=== PATIENT | male | born 1995 | race Hispanic/Latino ===

== ENCOUNTER 2018-09-18 13:40 | Emergency (ER) | payer SELFPAY ==
--- NOTE | 2018-09-18 14:43 | EDPHYS ---
Physician Documentation [facility] Name: Jonatan Longoria Age: 23 yrs Sex: Male : 1995 Arrival Date: 09/18/2018 Time: 13:45 Bed 9 Private MD: None, None ED Physician Haile Oro HPI: 09/18 14:40 This 23 yrs old Male presents to ER via Ambulatory with complaints of Ankle kb Swelling. 14:40 The patient presents with pain, that is chronic. The complaints affect the left ankle, kb right ankle. Onset: The symptoms/episode began/occurred 1 year(s) ago. Context: resulted from The patient can fully bear weight on the affected extremity. the patient is able to ambulate. Associated signs and symptoms: The patient has no apparent associated signs or symptoms. Modifying factors: The symptoms are alleviated by nothing, the symptoms are aggravated by nothing. Severity of symptoms: At their worst the symptoms were mild, moderate, in the emergency department the symptoms are unchanged. The patient has not experienced similar symptoms in the past. The patient has not recently seen a physician. Pt reports bilateral ankle pain since HS, but has been worse over the last year. Historical: - Allergies: 14:21 No Known Allergies; sv - PMHx: 14:27 None; aa5 - PSHx: 14:21 right achilles; sv - Immunization history:: Flu vaccine is not up to date. - Social history:: Smoking status: Patient uses tobacco products, smokes one-half pack cigarettes per day. - Ebola Screening: : No symptoms or risks identified at this time. ROS: 14:40 Constitutional: Negative for fever, chills, and weight loss, Cardiovascular: Negative kb for chest pain, palpitations, and edema, Respiratory: Negative for shortness of breath, cough, wheezing, and pleuritic chest pain, Abdomen/GI: Negative for abdominal pain, nausea, vomiting, diarrhea, and constipation, Skin: Negative for injury, rash, and discoloration, Neuro: Negative for headache, weakness, numbness, tingling, and seizure. 14:40 MS/extremity: Positive for pain, of the left and right ankles. Exam: 14:40 Constitutional: This is a well developed, well nourished patient who is awake, alert, kb and in no acute distress. Head/Face: Normocephalic, atraumatic. Chest/axilla: Normal chest wall appearance and motion. Nontender with no deformity. No lesions are appreciated. Cardiovascular: Regular rate and rhythm with a normal S1 and S2. No gallops, murmurs, or rubs. Normal PMI, no JVD. No pulse deficits. Respiratory: Lungs have equal breath sounds bilaterally, clear to auscultation and percussion. No rales, rhonchi or wheezes noted. No increased work of breathing, no retractions or nasal flaring. Abdomen/GI: Soft, non-tender, with normal bowel sounds. No distension or tympany. No guarding or rebound. No evidence of tenderness throughout. Skin: Warm, dry with normal turgor. Normal color with no rashes, no lesions, and no evidence of cellulitis. MS/ Extremity: Pulses equal, no cyanosis. Neurovascular intact. Full, normal range of motion. Neuro: Awake and alert, GCS 15, oriented to person, place, time, and situation. Cranial nerves II-XII grossly intact. Motor strength 5/5 in all extremities. Sensory grossly intact. Cerebellar exam normal. Normal gait. Vital Signs: 14:22 BP 123 / 83; Pulse 66; Resp 18; Temp 97.8(TE); Pulse Ox 97% ; Weight 124.74 kg; Height sv 6 ft. 0 in. (182.88 cm); Pain 7/10; 14:22 Body Mass Index 37.30 (124.74 kg, 182.88 cm) sv MDM: 14:29 Patient medically screened. kb 14:40 Data reviewed: vital signs, nurses notes. Data interpreted: Pulse oximetry: on room air kb is 97 %. Interpretation: normal. Counseling: I had a detailed discussion with the patient and/or guardian regarding: the historical points, exam findings, and any diagnostic results supporting the discharge/admit diagnosis, the need for outpatient follow up, a orthopedic surgeon, to return to the emergency department if symptoms worsen or persist or if there are any questions or concerns that arise at home. Administered Medications: No medications were administered Disposition: 18:49 Co-signature as Attending Physician, Haile Oro MD. rn Disposition: 09/18/18 14:43 Discharged to Home. Impression: Pain in left ankle and joints of left foot - chronic, Pain in right ankle and joints of right foot - chronic. - Condition is Stable. - Discharge Instructions: Ankle Sprain, [id number]. - Work release form, Medication Reconciliation Form, Thank You Letter, Antibiotic Education, Prescription Opioid Use form. - Follow up: Emergency Department; When: As needed; Reason: Worsening of condition. Follow up: Private Physician; When: 2 - 3 days; Reason: Recheck today's complaints, Continuance of care, Re-evaluation by your physician. Signatures: Sera Fajardo, JOE-C EXERCISE INSTRUCTOR-Heather Mas, RN RN Haile Arce MD MD rn Calderon, Audri, RN RN aa5 Corrections: (The following items were deleted from the chart) 15:06 14:43 09/18/2018 14:43 Discharged to Home. Impression: Pain in left ankle and joints of aa5 left foot - chronic; Pain in right ankle and joints of right foot - chronic. Condition is Stable. Forms are Medication Reconciliation Form, Thank You Letter, Antibiotic Education, Prescription Opioid Use. Follow up: Emergency Department; When: As needed; Reason: Worsening of condition. Follow up: Private Physician; When: 2 - 3 days; Reason: Recheck today's complaints, Continuance of care, Re-evaluation by your physician. kb
--- NOTE | 2018-09-18 14:43 | ER ---
Nurse's Notes [facility] Name: Jonatan Longoria Age: 23 yrs Sex: Male : 1995 Arrival Date: 09/18/2018 Time: 13:45 Bed 9 Private MD: None, None Diagnosis: Pain in left ankle and joints of left foot-chronic;Pain in right ankle and joints of right foot-chronic Presentation: 09/18 14:19 Presenting complaint: Patient states: bilateral ankle pain started today but has been sv having problems with his ankles since tearing his achilles last year. Pt has had an MRI but is still having difficulty with twisting them. Transition of care: patient was not received from another setting of care. Onset of symptoms was September 18, 2018. Care prior to arrival: None. 14:19 Method Of Arrival: Ambulatory sv 14:19 Acuity: ALEKSANDRA 5 sv 14:27 Risk Assessment: Do you want to hurt yourself or someone else? Patient reports no aa5 desire to harm self or others. Initial Sepsis Screen: Does the patient meet any 2 criteria? No. Patient's initial sepsis screen is negative. Does the patient have a suspected source of infection? No. Patient's initial sepsis screen is negative. Triage Assessment: 14:23 General: Appears in no apparent distress. uncomfortable, obese, Behavior is calm, sv cooperative, appropriate for age. Pain: Complains of pain in left and right ankle Pain currently is 7 out of 10 on a pain scale. Neuro: Level of Consciousness is awake, alert, obeys commands, Oriented to person, place, time, situation, Moves all extremities. Gait is steady. Respiratory: Respiratory effort is even, unlabored, Respiratory pattern is regular, symmetrical. Historical: - Allergies: 14:21 No Known Allergies; sv - PMHx: 14:27 None; aa5 - PSHx: 14:21 right achilles; sv - Immunization history:: Flu vaccine is not up to date. - Social history:: Smoking status: Patient uses tobacco products, smokes one-half pack cigarettes per day. - Ebola Screening: : No symptoms or risks identified at this time. Screenin:29 Abuse screen: Denies threats or abuse. Nutritional screening: No deficits noted. aa5 Tuberculosis screening: No symptoms or risk factors identified. Fall Risk None identified. Assessment: 14:27 General: Appears comfortable, Behavior is calm, cooperative. Pain: Complains of pain in aa5 joe ankles Pain does not radiate. Aggravated by weight bearing. Neuro: Level of Consciousness is awake, alert, obeys commands, Oriented to person, place, time, situation. Cardiovascular: No deficits noted. Pulses are 3+ in right posterior tibial artery, right dorsalis pedis artery, left posterior tibial artery and left dorsalis pedis artery. Respiratory: Airway is patent Respiratory effort is even, unlabored, Respiratory pattern is regular, symmetrical. GI: No signs and/or symptoms were reported involving the gastrointestinal system. : No signs and/or symptoms were reported regarding the genitourinary system. EENT: No signs and/or symptoms were reported regarding the EENT system. Derm: Skin is pink, warm \\T\\ dry. 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 15:05 Reassessment: Patient is alert, oriented x 3, equal unlabored respirations, skin aa5 warm/dry/pink. Vital Signs: 14:22 BP 123 / 83; Pulse 66; Resp 18; Temp 97.8(TE); Pulse Ox 97% ; Weight 124.74 kg; Height sv 6 ft. 0 in. (182.88 cm); Pain 7/10; 14:22 Body Mass Index 37.30 (124.74 kg, 182.88 cm) sv ED Course: 13:45 Patient arrived in ED. mr 13:45 None, None is Private Physician. mr 14:20 Heidi Wiseman, RN is Primary Nurse. aa5 14:21 Triage completed. sv 14:22 Arm band placed on. sv 14:27 Patient has correct armband on for positive identification. Bed in low position. Call aa5 light in reach. Side rails up X 1. Adult w/ patient. 14:29 [facility] kb 14:29 Haile Oro MD is Attending Physician. kb 14:29 No provider procedures requiring assistance completed. aa5 15:05 Patient did not have IV access during this emergency room visit. aa5 Administered Medications: No medications were administered Outcome: 14:43 Discharge ordered by . kb 15:05 Discharged to home ambulatory, with significant other. aa5 15:05 Condition: stable 15:05 Discharge instructions given to patient, Instructed on discharge instructions, follow up and referral plans. Demonstrated understanding of instructions, follow-up care. 15:06 Patient left the ED. aa5 Signatures: Sera Fajardo, ARCHITECTURE INTERNSHIP-C ARCHITECTURE INTERNSHIP-Heather Mas RN RN Rosa Cho Audri, RN RN aa5 Corrections: (The following items were deleted from the chart) 14:23 14:22 124.74 kg; Height 6 ft. 0 in.; BMI: 37.3; Pain 7/10; sv sv 14:24 14:22 Pulse 66bpm; Resp 18bpm; Pulse Ox 97%; Temp 97.8F Temporal; 124.74 kg; Height 6 sv ft. 0 in.; BMI: 37.3; Pain 7/10; sv
[2018-09-18 15:12] VITALS: BP 123/83; TEMP 97.8; O2SAT 97
== END 2018-09-18 15:06 | disposition home or self-care (01) ==
LOC: ER 13:40
DX: M25.571 Pain in right ankle and joints of right foot (principal); F17.210 Nicotine dependence, cigarettes, uncomplicated
CPT/HCPCS: 99281

== ENCOUNTER 2019-11-30 12:54 | Emergency (ER) | payer SELFPAY ==
--- NOTE | 2019-11-30 13:50 | ER ---
Nurse's Notes [facility] Name: Jonatan Longoria Age: 24 yrs Sex: Male : 1995 Arrival Date: 11/30/2019 Time: 12:58 Bed 23 Private MD: Diagnosis: Pain in right thigh Presentation: 11/30 13:07 Presenting complaint: Patient states: this morning was stretching and pulled something iw in right thigh. Transition of care: patient was not received from another setting of care. Onset of symptoms was November 30, 2019. Risk Assessment: Do you want to hurt yourself or someone else? Patient reports no desire to harm self or others. Initial Sepsis Screen: Does the patient meet any 2 criteria? No. Patient's initial sepsis screen is negative. Does the patient have a suspected source of infection? No. Patient's initial sepsis screen is negative. Care prior to arrival: None. 13:07 Method Of Arrival: Ambulatory iw 13:07 Acuity: ALEKSANDRA 4 iw Historical: - Allergies: 13:07 No Known Allergies; iw - Home Meds: 13:07 None [Active]; iw - PMHx: 13:07 None; iw - PSHx: 13:07 right achilles; iw - Immunization history:: Adult Immunizations. - Social history:: Smoking status: Patient uses tobacco products, denies chronic smoking, but will smoke occasionally. - Ebola Screening: : Patient negative for fever greater than or equal to 101.5 degrees Fahrenheit, and additional compatible Ebola Virus Disease symptoms Patient denies exposure to infectious person Patient denies travel to an Ebola-affected area in the 21 days before illness onset No symptoms or risks identified at this time. Screenin:16 Abuse screen: Denies threats or abuse. Denies injuries from another. Nutritional ca1 screening: No deficits noted. Tuberculosis screening: No symptoms or risk factors identified. Fall Risk None identified. Assessment: 13:16 General: Appears in no apparent distress. comfortable, Behavior is calm, cooperative, ca1 appropriate for age. Pain: Complains of pain in right hamstring Pain currently is 4 out of 10 on a pain scale. Is intermittent, Aggravated by repositioning. Neuro: Level of Consciousness is awake, alert, obeys commands, Oriented to person, place, time, situation, Appropriate for age. Derm: Skin is intact, is healthy with good turgor, Skin is pink, warm \T\ dry. Musculoskeletal: Circulation, motion, and sensation intact. Capillary refill < 3 seconds, Range of motion: intact in all extremities. 14:05 Reassessment: Patient appears in no apparent distress at this time. Patient is alert, ca1 oriented x 3, equal unlabored respirations, skin warm/dry/pink. Vital Signs: 13:07 BP 134 / 86; Pulse 93; iw 13:07 BP 134 / 86; Pulse 93; Resp 16; Temp 98.9; Pulse Ox 97% on R/A; Weight 133.81 kg; iw Height 6 ft. 0 in. (182.88 cm); Pain 5/10; 14:05 BP 129 / 79; Pulse 86; Resp 17 S; Pulse Ox 100% on R/A; ca1 13:07 Body Mass Index 40.01 (133.81 kg, 182.88 cm) iw ED Course: 12:58 Patient arrived in ED. mr 12:58 Winter Diana FNP-C [facility]. snw 12:59 Haile Oro MD is Attending Physician. snw 13:07 Triage completed. iw 13:07 Arm band placed on. iw 13:10 Yajaira Cabrera RN is Primary Nurse. ca1 13:16 Patient has correct armband on for positive identification. Bed in low position. Call ca1 light in reach. Side rails up X 1. Pulse ox on. NIBP on. 13:16 No provider procedures requiring assistance completed. Patient did not have IV access ca1 during this emergency room visit. 14:05 Sloan wrap to R thigh by Mary Durant, senior qc technician. ca1 Administered Medications: 13:59 Drug: Motrin 400 mg Route: PO; ca1 14:00 Follow up: Response: Medication administered at discharge. ca1 Outcome: 13:50 Discharge ordered by . snw 14:24 Discharged to home ambulatory. ca1 14:24 Condition: stable 14:24 Discharge instructions given to patient, Instructed on discharge instructions, follow up and referral plans. medication usage, Demonstrated understanding of instructions, follow-up care, medications, Prescriptions given X 2. 14:26 Patient left the ED. ca1 Signatures: Winter Diana FNP-C FNP-Orestes ChadwickaRosa mr Cinthia Lin RN RN iw Acob, Yajaira, RN RN ca1
--- NOTE | 2019-11-30 13:51 | EDPHYS ---
Physician Documentation [facility] Name: Jonatan Longoria Age: 24 yrs Sex: Male : 1995 Arrival Date: 11/30/2019 Time: 12:58 Bed 23 Private MD: ED Physician Haile Oro HPI: 11/30 15:09 This 24 yrs old Male presents to ER via Ambulatory with complaints of Leg Pain.snw 15:09 The patient presents with pain, that is acute. The complaints affect the right snw hamstring. Context: The problem was sustained at home, resulted from pt states he was stretching this am before work and felt a pop with resulting pain to posterior thigh, the patient can partially bear weight, the patient is able to ambulate, Problem is a result from a previous injury: No. Onset: The symptoms/episode began/occurred suddenly, this morning. Associated signs and symptoms: Pertinent positives: swelling. Treatment prior to arrival includes: no previous treatment. Severity of symptoms: At their worst the symptoms were moderate. The patient has not recently seen a physician. Historical: - Allergies: 13:07 No Known Allergies; iw - Home Meds: 13:07 None [Active]; iw - PMHx: 13:07 None; iw - PSHx: 13:07 right achilles; iw - Immunization history:: Adult Immunizations. - Social history:: Smoking status: Patient uses tobacco products, denies chronic smoking, but will smoke occasionally. - Ebola Screening: : Patient negative for fever greater than or equal to 101.5 degrees Fahrenheit, and additional compatible Ebola Virus Disease symptoms Patient denies exposure to infectious person Patient denies travel to an Ebola-affected area in the 21 days before illness onset No symptoms or risks identified at this time. ROS: 15:11 Constitutional: Negative for fever, chills, and weight loss, Eyes: Negative for injury, snw pain, redness, and discharge, ENT: Negative for injury, pain, and discharge, Neck: Negative for injury, pain, and swelling, Cardiovascular: Negative for chest pain, palpitations, and edema, Respiratory: Negative for shortness of breath, cough, wheezing, and pleuritic chest pain, Abdomen/GI: Negative for abdominal pain, nausea, vomiting, diarrhea, and constipation, Back: Negative for injury and pain, : Negative for injury, bleeding, discharge, and swelling, Skin: Negative for injury, rash, and discoloration, Neuro: Negative for headache, weakness, numbness, tingling, and seizure. 15:11 MS/extremity: Positive for injury or acute deformity, pain, swelling, tenderness, of the right hamstring. Exam: 15:06 Constitutional: This is a well developed, well nourished patient who is awake, alert, snw and in no acute distress. Head/Face: Normocephalic, atraumatic. Eyes: Pupils equal round and reactive to light, extra-ocular motions intact. Lids and lashes normal. Conjunctiva and sclera are non-icteric and not injected. Cornea within normal limits. Periorbital areas with no swelling, redness, or edema. ENT: Nares patent. No nasal discharge, no septal abnormalities noted. Tympanic membranes are normal and external auditory canals are clear. Oropharynx with no redness, swelling, or masses, exudates, or evidence of obstruction, uvula midline. Mucous membranes moist. Neck: Trachea midline, no thyromegaly or masses palpated, and no cervical lymphadenopathy. Supple, full range of motion without nuchal rigidity, or vertebral point tenderness. No Meningismus. Chest/axilla: Normal chest wall appearance and motion. Nontender with no deformity. No lesions are appreciated. Cardiovascular: Regular rate and rhythm with a normal S1 and S2. No gallops, murmurs, or rubs. Normal PMI, no JVD. No pulse deficits. Respiratory: Lungs have equal breath sounds bilaterally, clear to auscultation and percussion. No rales, rhonchi or wheezes noted. No increased work of breathing, no retractions or nasal flaring. Abdomen/GI: Soft, non-tender, with normal bowel sounds. No distension or tympany. No guarding or rebound. No evidence of tenderness throughout. Back: No spinal tenderness. No costovertebral tenderness. Full range of motion. Skin: Warm, dry with normal turgor. Normal color with no rashes, no lesions, and no evidence of cellulitis. Neuro: Awake and alert, GCS 15, oriented to person, place, time, and situation. Cranial nerves II-XII grossly intact. Motor strength 5/5 in all extremities. Sensory grossly intact. Cerebellar exam normal. Normal gait. Psych: Awake, alert, with orientation to person, place and time. Behavior, mood, and affect are within normal limits. 15:06 Musculoskeletal/extremity: Extremities: grossly normal except: noted in the right hamstring: tenderness, ROM: limited active range of motion due to pain, in the right hamstring, Circulation is intact in all extremities. Sensation intact. Vital Signs: 13:07 BP 134 / 86; Pulse 93; iw 13:07 BP 134 / 86; Pulse 93; Resp 16; Temp 98.9; Pulse Ox 97% on R/A; Weight 133.81 kg; iw Height 6 ft. 0 in. (182.88 cm); Pain 5/10; 14:05 BP 129 / 79; Pulse 86; Resp 17 S; Pulse Ox 100% on R/A; ca1 13:07 Body Mass Index 40.01 (133.81 kg, 182.88 cm) iw MDM: 13:11 Patient medically screened. snw 15:08 Data reviewed: vital signs, nurses notes. Data interpreted: Pulse oximetry: on room air snw is 100 %. Interpretation: normal. Counseling: I had a detailed discussion with the patient and/or guardian regarding: the historical points, exam findings, and any diagnostic results supporting the discharge/admit diagnosis, the need for outpatient follow up, to return to the emergency department if symptoms worsen or persist or if there are any questions or concerns that arise at home. Special discussion: Based on the history and exam findings, there is no indication for further emergent testing or inpatient evaluation. I discussed with the patient/guardian the need to see the orthopedic surgeon for further evaluation of the symptoms. I discussed with the patient/guardian the need to see the primary care provider for further evaluation of the symptoms. 11/30 13:49 Order name: Sloan Wrap: right thigh; Complete Time: 14:20 snw Administered Medications: 13:59 Drug: Motrin 400 mg Route: PO; ca1 14:00 Follow up: Response: Medication administered at discharge. ca1 Disposition: 17:49 Co-signature as Attending Physician, Haile Oro MD. rn Disposition: 11/30/19 13:50 Discharged to Home. Impression: Pain in right thigh. - Condition is Stable. - Discharge Instructions: Hypertension, Musculoskeletal Pain, RICE for Routine Care of Injuries, Cryotherapy, [id number], Heat Therapy, Form - Blood Pressure Record Sheet. - Prescriptions for Mobic 7.5 mg Oral Tablet - take 1 tablet by ORAL route once daily take with food; 20 tablet. orphenadrine citrate 100 mg Oral Tablet Sustained Release - take 1 tablet by ORAL route 2 times per day As needed; 20 tablet. - Work release form, Medication Reconciliation Form, Thank You Letter, Antibiotic Education, Prescription Opioid Use form. - Follow up: Emergency Department; When: As needed; Reason: Worsening of condition. Follow up: Private Physician; When: 2 - 3 days; Reason: Recheck today's complaints, Continuance of care, Re-evaluation by your physician. Signatures: Winter Diana, MANGLE OPERATOR GARMENTS-C MANGLE OPERATOR GARMENTS-Csnw Cinthia Lin RN RN iw Haile Oro MD MD rn Acob, WILLA Gates RN ca1 Corrections: (The following items were deleted from the chart) 14:26 13:50 11/30/2019 13:50 Discharged to Home. Impression: Pain in right thigh. Condition ca1 is Stable. Forms are Medication Reconciliation Form, Thank You Letter, Antibiotic Education, Prescription Opioid Use. Follow up: Emergency Department; When: As needed; Reason: Worsening of condition. Follow up: Private Physician; When: 2 - 3 days; Reason: Recheck today's complaints, Continuance of care, Re-evaluation by your physician. snw
[2019-11-30] MEDS ORDERED: IBUPROFEN 400 MG TAB ONE (14:01)
[2019-11-30 15:55] VITALS: TEMP 98.9
[2019-11-30 15:56] VITALS: BP 129/79; O2SAT 100
== END 2019-11-30 14:26 | disposition home or self-care (01) ==
LOC: ER 12:54
DX: M79.651 Pain in right thigh (principal); Z72.0 Tobacco use
CPT/HCPCS: 99284

== ENCOUNTER 2020-02-08 15:26 | Emergency (ER) | payer SELFPAY ==
[2020-02-08] MEDS ORDERED: HYDROCODONE/CHLORPHEN 5 ML/OSYR ONE (16:04)
--- NOTE | 2020-02-08 16:23 | RAD REPORT ---
EXAM DESCRIPTION: RAD - Chest Pa And Lat (2 Views) - 02/08/2020 4:14 pm CLINICAL HISTORY: COUGH COMPARISON: December 2013 TECHNIQUE: Frontal and lateral views of the chest were obtained. FINDINGS: The lungs are normal volume. There is opacification in the lingula of the left upper lobe. This anterior base opacification abuts the fissure. No failure or volume overload. Heart size is n ormal and central vasculature is within normal limits. No pleural effusion or pneumothorax seen. No acute bony finding noted. No aortic abnormality. IMPRESSION: Mild or early left anterior lung base pneumonia.
--- NOTE | 2020-02-08 17:26 | ER ---
Nurse's Notes [facility] Name: Jonatan Longoria Age: 25 yrs Sex: Male : 1995 Arrival Date: 02/08/2020 Time: 15:29 Bed 20 Private MD: Diagnosis: Pneumonia, unspecified organism Presentation: 02/07 15:38 Chief complaint: Patient states: cough, congestion, headaches since Saturday. Denies ca1 fever, reports chills. Coronavirus screen: Patient reports a subjective fever or greater than 100.4F, or cough, or shortness of breath, or difficulty breathing. Patient denies travel on a cruise ship or to a country the [facility] currently lists as an affected area. Patient denies contact with known and/or suspected case of COVID-19. Ebola Screen: Patient negative for fever greater than or equal to 101.5 degrees Fahrenheit, and additional compatible Ebola Virus Disease symptoms Patient denies exposure to infectious person. Patient denies travel to an Ebola-affected area in the 21 days before illness onset. No symptoms or risks identified at this time. Initial Sepsis Screen: Does the patient meet any 2 criteria? No. Patient's initial sepsis screen is negative. Does the patient have a suspected source of infection? No. Patient's initial sepsis screen is negative. Risk Assessment: Do you want to hurt yourself or someone else? Patient reports desire/thoughts of hurting themselves or someone else. Provider notified. Onset of symptoms was February 08, 2020. 15:38 Method Of Arrival: Ambulatory ca1 15:38 Acuity: ALEKSANDRA 4 ca1 Historical: - Allergies: 15:40 No Known Allergies; ca1 - Home Meds: 15:40 None [Active]; ca1 - PMHx: 15:40 None; ca1 - PSHx: 15:40 right achilles; ca1 - Immunization history:: Adult Immunizations up to date, Flu vaccine is not up to date. - Social history:: Smoking status: Patient denies any tobacco usage or history of. Screenin:00 Abuse screen: Denies threats or abuse. Nutritional screening: No deficits noted. aa5 Tuberculosis screening: No symptoms or risk factors identified. Fall Risk None identified. Assessment: 16:00 General: Appears comfortable, Behavior is calm, cooperative. Pain: Complains of pain in aa5 head Pain currently is 0 out of 10 on a pain scale. Is intermittent. Neuro: Level of Consciousness is awake, alert, obeys commands, Oriented to person, place, time, situation. Cardiovascular: Heart tones S1 S2 present Rhythm is regular. Respiratory: Reports cough Airway is patent Respiratory effort is even, unlabored, Respiratory pattern is regular, symmetrical, Breath sounds are clear bilaterally. GI: No signs and/or symptoms were reported involving the gastrointestinal system. : No signs and/or symptoms were reported regarding the genitourinary system. EENT: Reports nasal congestion nasal discharge. Derm: Skin is pink, warm \T\ dry. Musculoskeletal: Range of motion: intact in all extremities. 17:38 Reassessment: Patient is alert, oriented x 3, equal unlabored respirations, skin aa5 warm/dry/pink. 18:10 Reassessment: Patient is alert, oriented x 3, equal unlabored respirations, skin aa5 warm/dry/pink. Vital Signs: 15:38 BP 119 / 81; Pulse 100; Resp 18 S; Temp 98.9(O); Pulse Ox 96% on R/A; Weight 131.54 kg ca1 (R); Height 6 ft. (182.88 cm) (R); Pain 0/10; 15:38 Body Mass Index 39.33 (131.54 kg, 182.88 cm) ca1 ED Course: 15:29 Patient arrived in ED. mr 15:40 Triage completed. ca1 15:40 Arm band placed on right wrist. ca1 15:42 Dejuan Spence NP is PHCP. pm1 15:42 Haile Oro MD is Attending Physician. pm1 15:51 Heidi Wiseman RN is Primary Nurse. aa5 16:00 Patient has correct armband on for positive identification. Bed in low position. Call aa5 light in reach. Side rails up X 1. 16:00 Flu and/or RSV swab sent to lab. Strep swab sent to lab. aa5 18:10 No provider procedures requiring assistance completed. Patient did not have IV access aa5 during this emergency room visit. Administered Medications: 16:00 Drug: Tussionex Pennkinetic ER 5 ml Route: PO; aa5 17:38 Follow up: Response: No adverse reaction aa5 17:38 Drug: Rocephin (cefTRIAXone) 1 grams Route: IM; Site: right gluteus; aa5 18:05 Follow up: Response: No adverse reaction aa5 Outcome: 17:25 Discharge ordered by MD. pm1 18:09 Discharged to home ambulatory. aa5 18:09 Condition: stable 18:09 Discharge instructions given to patient, Instructed on discharge instructions, follow up and referral plans. medication usage, Demonstrated understanding of instructions, follow-up care, medications, Prescriptions given X 3. 18:10 Patient left the ED. aa5 Signatures: Rosa Hare Audri, RN RN aa5 Dejuan Spence, ASSOCIATE PRINCIPAL ASSOCIATE PRINCIPAL pm1 Yajaira Cabrera RN RN ca1
--- NOTE | 2020-02-08 17:26 | EDPHYS ---
Physician Documentation [facility] Name: Jonatan Longoria Age: 25 yrs Sex: Male : 1995 Arrival Date: 02/08/2020 Time: 15:29 Bed 20 Private MD: ED Physician Haile Oro HPI: 02/07 15:54 This 25 yrs old Male presents to ER via Ambulatory with complaints of Cough, pm1 Headache. 15:54 The patient or guardian reports cough, with no sputum. Onset: The symptoms/episode pm1 began/occurred 3 day(s) ago. Severity of symptoms: in the emergency department the symptoms are actually worse. Modifying factors: The symptoms are alleviated by nothing, the symptoms are aggravated by nothing. Associated signs and symptoms: Pertinent positives: headache with coughing, Pertinent negatives: chest pain, fever, sore throat, shortness of breath. The patient has not recently seen a physician. Historical: - Allergies: 15:40 No Known Allergies; ca1 - Home Meds: 15:40 None [Active]; ca1 - PMHx: 15:40 None; ca1 - PSHx: 15:40 right achilles; ca1 - Immunization history:: Adult Immunizations up to date, Flu vaccine is not up to date. - Social history:: Smoking status: Patient denies any tobacco usage or history of. ROS: 15:54 Constitutional: Negative for fever, chills, and weight loss, Eyes: Negative for injury, pm1 pain, redness, and discharge, ENT: Negative for injury, pain, and discharge, Neck: Negative for injury, pain, and swelling, Cardiovascular: Negative for chest pain, palpitations, and edema. 15:54 Abdomen/GI: Negative for abdominal pain, nausea, vomiting, diarrhea, and constipation, Back: Negative for injury and pain, MS/Extremity: Negative for injury and deformity, Skin: Negative for injury, rash, and discoloration. 15:54 Respiratory: Positive for cough, Negative for shortness of breath, sputum production, wheezing. 15:54 Neuro: Positive for headache, Negative for dizziness, weakness. Exam: 15:54 Constitutional: This is a well developed, well nourished patient who is awake, alert, pm1 and in no acute distress. Head/Face: Normocephalic, atraumatic. Eyes: Pupils equal round and reactive to light, extra-ocular motions intact. Lids and lashes normal. Conjunctiva and sclera are non-icteric and not injected. Cornea within normal limits. Periorbital areas with no swelling, redness, or edema. ENT: Nares patent. No nasal discharge, no septal abnormalities noted. Tympanic membranes are normal and external auditory canals are clear. Oropharynx with no redness, swelling, or masses, exudates, or evidence of obstruction, uvula midline. Mucous membranes moist. Neck: Trachea midline, no thyromegaly or masses palpated, and no cervical lymphadenopathy. Supple, full range of motion without nuchal rigidity, or vertebral point tenderness. No Meningismus. Chest/axilla: Normal chest wall appearance and motion. Nontender with no deformity. No lesions are appreciated. Cardiovascular: Regular rate and rhythm with a normal S1 and S2. No gallops, murmurs, or rubs. No pulse deficits. Respiratory: Lungs have equal breath sounds bilaterally, clear to auscultation and percussion. No rales, rhonchi or wheezes noted. No increased work of breathing, no retractions or nasal flaring. Abdomen/GI: Soft, non-tender, with normal bowel sounds. No distension or tympany. No guarding or rebound. No evidence of tenderness throughout. Back: No spinal tenderness. No costovertebral tenderness. Full range of motion. Skin: Warm, dry with normal turgor. Normal color with no rashes, no lesions, and no evidence of cellulitis. MS/ Extremity: Pulses equal, no cyanosis. Neurovascular intact. Full, normal range of motion. 15:54 Neuro: Orientation: is normal, Mentation: is normal, Motor: is normal, moves all fours. Vital Signs: 15:38 BP 119 / 81; Pulse 100; Resp 18 S; Temp 98.9(O); Pulse Ox 96% on R/A; Weight 131.54 kg ca1 (R); Height 6 ft. (182.88 cm) (R); Pain 0/10; 15:38 Body Mass Index 39.33 (131.54 kg, 182.88 cm) ca1 MDM: 15:54 Patient medically screened. pm1 15:54 ED course: Patient without any sick contacts or anyone who tested positive for COVID. pm1 Patient does not currently meet criteria for testing COVID 19. 17:24 Data reviewed: vital signs. Data interpreted: Pulse oximetry: on room air is 96 %. pm1 Interpretation: normal. Counseling: I had a detailed discussion with the patient and/or guardian regarding: the historical points, exam findings, and any diagnostic results supporting the discharge/admit diagnosis, lab results, radiology results, the need for outpatient follow up, to return to the emergency department if symptoms worsen or persist or if there are any questions or concerns that arise at home. 02/07 15:44 Order name: Flu; Complete Time: 16:54 pm1 02/07 15:44 Order name: Strep pm1 02/07 15:54 Order name: Chest Pa And Lat (2 Views) XRAY pm1 02/07 16:22 Order name: Group A Streptococcus Rapid Sc EDMS 02/07 17:19 Order name: Throat Culture EDMS Administered Medications: 16:00 Drug: Tussionex Pennkinetic ER 5 ml Route: PO; aa5 17:38 Follow up: Response: No adverse reaction aa5 17:38 Drug: Rocephin (cefTRIAXone) 1 grams Route: IM; Site: right gluteus; aa5 18:05 Follow up: Response: No adverse reaction aa5 Disposition: 18:23 Co-signature as Attending Physician, Haile Oro MD. rn Disposition: 02/08/20 17:25 Discharged to Home. Impression: Pneumonia, unspecified organism. - Condition is Stable. - Discharge Instructions: Community-Acquired Pneumonia, Adult. - Prescriptions for Zithromax Z- Oli 250 mg Oral Tablet - take 1 tablet by ORAL route as directed for 5 days Day 1 - take two (2) tablets one time. Day 2, 3, 4 , 5 take one (1) tablet once daily.; 6 tablet. Albuterol Sulfate 90 mcg/actuation - inhale 1-2 puff by INHALATION route every 4-6 hours; 1 Inhaler. Guaifenesin AC 10- 100 mg/5 mL Oral Liquid - take 10 milliliter by ORAL route every 4 hours As needed; 240 milliliter. - Work release form, Medication Reconciliation Form, Thank You Letter, Antibiotic Education, Prescription Opioid Use form. - Follow up: Emergency Department; When: As needed; Reason: Worsening of condition. Follow up: Private Physician; When: 2 - 3 days; Reason: Recheck today's complaints, Continuance of care, Re-evaluation by your physician. - Problem is new. - Symptoms have improved. Signatures: Dispatcher [employer] EDMS Haile Oor MD MD rn Calderon, Audri, RN RN aa5 Dejuan Spence, CONSTRUCTION EXECUTIVE CONSTRUCTION EXECUTIVE pm1 Acob, Yajaira RN RN ca1 Corrections: (The following items were deleted from the chart) 18:10 17:25 02/08/2020 17:25 Discharged to Home. Impression: Pneumonia, unspecified organism. aa5 Condition is Stable. Forms are Medication Reconciliation Form, Thank You Letter, Antibiotic Education, Prescription Opioid Use. Follow up: Emergency Department; When: As needed; Reason: Worsening of condition. Follow up: Private Physician; When: 2 - 3 days; Reason: Recheck today's complaints, Continuance of care, Re-evaluation by your physician. Problem is new. Symptoms have improved. pm1
[2020-02-08] MEDS ORDERED: LIDOCAINE 1% MPF 2 ML AMPULE ONE (17:38)
[2020-02-08] MEDS ORDERED: CEFTRIAXONE 1000 MG/VIAL ONE (17:38)
[2020-02-08 18:21] VITALS: BP 119/81; TEMP 98.9; O2SAT 96
== END 2020-02-08 18:10 | disposition home or self-care (01) ==
LOC: ER 15:26
DX: J18.9 Pneumonia, unspecified organism (principal); R51 Headache
CPT/HCPCS: 71046; 87070; 87081; 87804; 96372; 99283; J2001

== ENCOUNTER 2020-10-17 06:30 | Emergency (ER) | payer SELFPAY ==
[2020-10-17] MEDS ORDERED: KETOROLAC 30 MG/ML INJ ONE (07:07)
--- NOTE | 2020-10-17 08:03 | RAD REPORT ---
EXAM DESCRIPTION: RAD - Ankle Left 3 View - 10/17/2020 7:48 am CLINICAL HISTORY: PAIN COMPARISON: Ankle Left 3 View dated 12/24/2016 FINDINGS: No fracture, dislocation or periosteal reaction. No joint effusion seen. No joint space na rrowing. No significant soft tissue swelling identified. Minimal edema evident in the fatty soft tiss ues posterior to the ankle IMPRESSION: No acute bone or joint finding. Minimal edema in the fatty tissues posterior to the ankle joint.
--- NOTE | 2020-10-17 08:04 | RAD REPORT ---
EXAM DESCRIPTION: RAD - Foot Left 2 View - 10/17/2020 7:48 am CLINICAL HISTORY: PAIN, nontraumatic COMPARISON: No comparisons FINDINGS: No fracture, dislocation or periosteal reaction. No acute or destructive bony process. No air or foreign body in the soft tissues. Mild edema of the soft tissues present. IMPRESSION: Mild soft tissue edema with no acute bone or joint finding of the left foot.
--- NOTE | 2020-10-17 08:09 | EDPHYS ---
Physician Documentation [facility] Name: Jonatan Longoria Age: 25 yrs Sex: Male : 1995 Arrival Date: 10/17/2020 Time: 06:33 Bed 8 Private MD: ED Physician Haile Oro HPI: 10/17 06:40 This 25 yrs old Male presents to ER via Unassigned with complaints of Ankle ma2 Pain, Ankle Swelling. 06:40 The patient presents with decreased range of motion. ma2 06:52 The complaints affect the left ankle. Onset: The symptoms/episode began/occurred ma2 gradually, 2 day(s) ago. Onset: The symptoms/episode began/occurred 2 day(s) ago. Associated signs and symptoms: Pertinent negatives: nausea, swelling, warmth, weakness. Severity of symptoms: At their worst the symptoms were mild, in the emergency department the symptoms are unchanged. The patient has not experienced similar symptoms in the past. Historical: - Allergies: 06:47 No Known Allergies; ea - PSHx: 06:47 right achilles; ea - Immunization history:: Adult Immunizations up to date. - Social history:: Smoking status: Patient denies any tobacco usage or history of. Patient/guardian denies using alcohol, street drugs, The patient lives with family. - Family history:: not pertinent. ROS: 06:52 Constitutional: Negative for fever, chills, and weight loss. ma2 06:52 All other systems are negative. Exam: 06:52 Constitutional: This is a well developed, well nourished patient who is awake, alert, ma2 and in no acute distress. Head/Face: Normocephalic, atraumatic. Eyes: Pupils equal round and reactive to light, extra-ocular motions intact. Lids and lashes normal. Conjunctiva and sclera are non-icteric and not injected. Cornea within normal limits. Periorbital areas with no swelling, redness, or edema. ENT: Nares patent. No nasal discharge, no septal abnormalities noted. Tympanic membranes are normal and external auditory canals are clear. Oropharynx with no redness, swelling, or masses, exudates, or evidence of obstruction, uvula midline. Mucous membranes moist. Neck: Trachea midline, no thyromegaly or masses palpated, and no cervical lymphadenopathy. Supple, full range of motion without nuchal rigidity, or vertebral point tenderness. No Meningismus. Chest/axilla: Normal chest wall appearance and motion. Nontender with no deformity. No lesions are appreciated. Cardiovascular: Regular rate and rhythm with a normal S1 and S2. No gallops, murmurs, or rubs. Normal PMI, no JVD. No pulse deficits. Respiratory: Lungs have equal breath sounds bilaterally, clear to auscultation and percussion. No rales, rhonchi or wheezes noted. No increased work of breathing, no retractions or nasal flaring. Abdomen/GI: Soft, non-tender, with normal bowel sounds. No distension or tympany. No guarding or rebound. No evidence of tenderness throughout. Back: No spinal tenderness. No costovertebral tenderness. Full range of motion. Skin: Warm, dry with normal turgor. Normal color with no rashes, no lesions, and no evidence of cellulitis. MS/ Extremity: left ankle exam shows mild tenderness, it is painfull to full range of motion, however full range of motion is achieved passively, no joint effusion, no warmth no skin changes such as rendness, no abrasions.. Pulses equal, no cyanosis. Neurovascular intact. Full, normal range of motion. Neuro: Awake and alert, GCS 15, oriented to person, place, time, and situation. Cranial nerves II-XII grossly intact. Motor strength 5/5 in all extremities. Sensory grossly intact. Cerebellar exam normal. Normal gait. Psych: Awake, alert, with orientation to person, place and time. Behavior, mood, and affect are within normal limits. Vital Signs: 06:50 BP 172 / 100; Pulse 77; Resp 19; Temp 98.4; Pulse Ox 97% ; Weight 99.79 kg; Height 6 ea ft. 0 in. (182.88 cm); 08:32 BP 159 / 98; Pulse 77; Resp 16; Pulse Ox 98% ; sv 06:50 Body Mass Index 29.84 (99.79 kg, 182.88 cm) ea MDM: 06:40 Patient medically screened. ma2 06:52 Differential diagnosis: fracture, sprain, arthritis. Data reviewed: vital signs, nurses ma2 notes. Counseling: I had a detailed discussion with the patient and/or guardian regarding: the historical points, exam findings, and any diagnostic results supporting the discharge/admit diagnosis, the presence of at least one elevated blood pressure reading (>120/80) during this emergency department visit, the need for outpatient follow up. Response to treatment: the patient's symptoms have markedly improved after treatment. ED course: very mild pain with no joint effusion, i gave return precaution for any new symptoms such as swelling, warmth or redness or if he develops worsening of his pain . 08:08 ED course: Xrays neg for fracture/dislocation, will dc home per Dr. Doan's plan at rn checkout.. 10/17 06:40 Order name: Ankle Left 3 View XRAY; Complete Time: 08: ma2 10/17 06:40 Order name: Foot Left 2 View XRAY; Complete Time: : ma2 Administered Medications: 06:58 Drug: TORadol 60 mg Route: IM; Site: right gluteus; rr5 08:32 Follow up: Response: No adverse reaction sv Disposition: 10/17/20 08:08 Discharged to Home. Impression: Sprain of ankle. - Condition is Stable. - Discharge Instructions: Ankle Sprain. - Prescriptions for Diclofenac Sodium 75 mg Oral Tablet Sustained Release - take 1 tablet by ORAL route 2 times per day; 30 tablet. - Work release form, Medication Reconciliation Form, Thank You Letter, Antibiotic Education, Prescription Opioid Use form. - Follow up: Private Physician; When: As needed; Reason: Recheck today's complaints, Re-evaluation by your physician. - Problem is new. - Symptoms have improved. Signatures: Dispatcher [employer] [facility] Heather Mcbride RN RN sv Nieto, Roman, MD MD rn Antunez, Elena, RN RN ea Alzahri, Mohammad, MD MD ma2 Aaron Goldstein RN RN rr5 Corrections: (The following items were deleted from the chart) 07:09 06:40 Foot Left 2 View+RAD.RAD.BRZ ordered. [facility] 08:32 08:08 10/17/2020 08:08 Discharged to Home. Impression: Sprain of ankle. Condition is sv Stable. Prescriptions for Diclofenac Sodium 75 mg Oral Tablet Sustained Release - take 1 tablet by ORAL route 2 times per day; 30 tablet. and Forms are Medication Reconciliation Form, Thank You Letter, Antibiotic Education, Prescription Opioid Use. Follow up: Private Physician; When: As needed; Reason: Recheck today's complaints, Re-evaluation by your physician. Problem is new. Symptoms have improved. rn
--- NOTE | 2020-10-17 08:09 | ER ---
Nurse's Notes [facility] Name: Jonatan Longoria Age: 25 yrs Sex: Male : 1995 Arrival Date: 10/17/2020 Time: 06:33 Bed 8 Private MD: Diagnosis: Sprain of ankle Presentation: 10/17 06:44 Chief complaint: Patient states: Pt reports left ankle pain that began on , ea worse this morning when he woke up. Coronavirus screen: Client denies travel out of the [place] in the last 14 days. At this time, the client does not indicate any symptoms associated with coronavirus-19. Ebola Screen: Patient negative for fever greater than or equal to 101.5 degrees Fahrenheit, and additional compatible Ebola Virus Disease symptoms Patient denies exposure to infectious person. Patient denies travel to an Ebola-affected area in the 21 days before illness onset. No symptoms or risks identified at this time. Initial Sepsis Screen: Does the patient meet any 2 criteria? No. Patient's initial sepsis screen is negative. Does the patient have a suspected source of infection? No. Patient's initial sepsis screen is negative. Risk Assessment: Do you want to hurt yourself or someone else? Patient reports no desire to harm self or others. Onset of symptoms was October 17, 2020. Care prior to arrival: None. Transition of care: patient was not received from another setting of care. 06:44 Method Of Arrival: Ambulatory ea 06:44 Acuity: ALEKSANDRA 4 ea Historical: - Allergies: 06:47 No Known Allergies; ea - PSHx: 06:47 right achilles; ea - Immunization history:: Adult Immunizations up to date. - Social history:: Smoking status: Patient denies any tobacco usage or history of. Patient/guardian denies using alcohol, street drugs, The patient lives with family. - Family history:: not pertinent. Screenin:17 Abuse screen: Denies threats or abuse. Denies injuries from another. Nutritional sv screening: No deficits noted. Tuberculosis screening: No symptoms or risk factors identified. Fall Risk None identified. Assessment: 07:10 General: Appears in no apparent distress. comfortable, Behavior is calm, cooperative, sv appropriate for age. Pain: Complains of pain in left ankle. Neuro: Level of Consciousness is awake, alert, obeys commands, Oriented to person, place, time, situation. Respiratory: Respiratory effort is even, unlabored, Respiratory pattern is regular, symmetrical. 08:31 Reassessment: Patient appears in no apparent distress at this time. No changes from sv previously documented assessment. Patient and/or family updated on plan of care and expected duration. Pain level reassessed. Patient is alert, oriented x 3, equal unlabored respirations, skin warm/dry/pink. Vital Signs: 06:50 BP 172 / 100; Pulse 77; Resp 19; Temp 98.4; Pulse Ox 97% ; Weight 99.79 kg; Height 6 ea ft. 0 in. (182.88 cm); 08:32 BP 159 / 98; Pulse 77; Resp 16; Pulse Ox 98% ; sv 06:50 Body Mass Index 29.84 (99.79 kg, 182.88 cm) ea ED Course: 06:33 Patient arrived in ED. bp1 06:37 Lucinda Crisostomo, WILLA is Primary Nurse. ea 06:40 Sin Doan MD is Attending Physician. ma2 06:47 Triage completed. ea 06:48 Arm band placed on. ea 07:07 Heather Mcbride, WILLA is Primary Nurse. sv 07:17 Awaiting for x-ray. sv 07:17 Patient has correct armband on for positive identification. Bed in low position. Call sv light in reach. Pulse ox on. NIBP on. 07:48 Ankle Left 3 View XRAY In Process Unspecified. EDMS 07:48 Foot Left 2 View XRAY In Process Unspecified. EDMS 08:08 Attending Physician role handed off by Sin Doan MD rn 08:08 Haile Oro MD is Attending Physician. rn 08:31 No provider procedures requiring assistance completed. Patient did not have IV access sv during this emergency room visit. Administered Medications: 06:58 Drug: TORadol 60 mg Route: IM; Site: right gluteus; rr5 08:32 Follow up: Response: No adverse reaction sv Outcome: 08:08 Discharge ordered by . rn 08:31 Discharged to home ambulatory, with family. sv 08:31 Condition: good 08:31 Discharge instructions given to patient, Instructed on discharge instructions, follow up and referral plans. medication usage, Demonstrated understanding of instructions, follow-up care, medications, Prescriptions given X 1. 08:32 Patient left the ED. sv Signatures: Dispatcher [employer] Heather Poon RN RN sv Nieto, Roman, MD MD rn Antunez, Elena, RN RN ea Alzahri, Mohammad, MD MD ma2 Aaron Goldstein RN RN rr5 Razia Retana [facility]
[2020-10-17 08:38] VITALS: TEMP 98.4
[2020-10-17 08:39] VITALS: BP 159/98; O2SAT 98
== END 2020-10-17 08:32 | disposition home or self-care (01) ==
LOC: ER 06:30
DX: S93.402A Sprain of unspecified ligament of left ankle, initial encounter (principal)
CPT/HCPCS: 96372; 99284

== ENCOUNTER 2021-12-27 08:19 | Emergency (ER) | payer SELFPAY ==
--- NOTE | 2021-12-27 09:42 | RAD REPORT ---
EXAM DESCRIPTION: RAD - Foot Right 3 View - 12/27/2021 9:17 am CLINICAL HISTORY: PAINprimarily in the right first toe COMPARISON: Foot Right 3 View dated 02/12/2013 FINDINGS: No fracture, dislocation or periosteal reaction. No acute or destructive bone or joint pro cess identifiable. Specifically, no abnormalities of the first toe seen. Soft tissue prominence is no t outside of normal range. No air or foreign body in the soft tissues. IMPRESSION: Negative right foot examination as detailed.
--- NOTE | 2021-12-27 09:47 | EDPHYS ---
Physician Documentation [facility] Name: Jonatan Longoria Age: 26 yrs Sex: Male : 1995 Arrival Date: 12/27/2021 Time: 08:22 Bed 18 Private MD: None, None ED Physician Stephan Gunn HPI: 12/27 09:43 This 26 yrs old Male presents to ER via Ambulatory with complaints of toe pain.kb 09:43 The patient presents with pain, that is acute, tenderness. The complaints affect the kb right first toe. Context: The problem was sustained at work, resulted from repetitive squatting down on toes, the patient can fully bear weight, the patient is able to ambulate. Onset: The symptoms/episode began/occurred 1 month(s) ago, and became worse yesterday. Modifying factors: The symptoms are alleviated by nothing, the symptoms are aggravated by weight bearing. Associated signs and symptoms: The patient has no apparent associated signs or symptoms. Severity of symptoms: At their worst the symptoms were moderate, in the emergency department the symptoms are unchanged. The patient has not experienced similar symptoms in the past. The patient has not recently seen a physician. Historical: - Allergies: 08:32 No Known Allergies; vg1 - Home Meds: 08:32 None [Active]; vg1 - PMHx: 08:32 None; vg1 - PSHx: 08:32 None; vg1 - Immunization history:: Client reports receiving the 2nd dose of the Covid vaccine. - Social history:: Smoking status: Reported history of juuling and/or vaping. ROS: 09:43 Constitutional: Negative for fever, chills, and weight loss. kb 09:43 MS/extremity: Positive for pain, of the right first toe. 09:43 All other systems are negative. Exam: 09:43 Constitutional: This is a well developed, well nourished patient who is awake, alert, kb and in no acute distress. Head/Face: Normocephalic, atraumatic. ENT: Moist Mucous membranes Respiratory: Respirations even and unlabored. No increased work of breathing. Talking in full sentences Skin: Warm, dry with normal turgor. Normal color. Neuro: Awake and alert, GCS 15, oriented to person, place, time, and situation. Moves all extremities. Normal gait. Psych: Awake, alert, with orientation to person, place and time. Behavior, mood, and affect are within normal limits. 09:43 Musculoskeletal/extremity: Extremities: grossly normal except: noted in the right first toe: pain, tenderness, ROM: intact in all extremities, Circulation is intact in all extremities. Sensation intact. Weight bearing: able to fully bear weight. Vital Signs: 08:30 BP 133 / 86; Pulse 67; Resp 16; Temp 98.0; Pulse Ox 99% ; Weight 124.28 kg; Height 6 vg1 ft. 0 in. (182.88 cm); Pain 9/10; 10:31 BP 137 / 65; Pulse 71; Resp 16; Temp 98; Pulse Ox 99% ; bp 08:30 Body Mass Index 37.16 (124.28 kg, 182.88 cm) vg1 MDM: 08:32 Patient medically screened. kb 09:43 Data reviewed: vital signs, nurses notes. Data interpreted: Pulse oximetry: on room air kb is 99 %. Interpretation: normal. Counseling: I had a detailed discussion with the patient and/or guardian regarding: the historical points, exam findings, and any diagnostic results supporting the discharge/admit diagnosis, radiology results, the need for outpatient follow up, a family practitioner, a orthopedic surgeon, to return to the emergency department if symptoms worsen or persist or if there are any questions or concerns that arise at home. 12/27 08:32 Order name: Foot Right 3 View XRAY; Complete Time: 09:42 kb Administered Medications: No medications were administered Disposition: 12:14 Co-signature as Attending Physician, Stephan Gunn MD I agree with the assessment and haydee plan of care. Disposition Summary: 12/27/21 09:46 Discharge Ordered Location: Home kb Condition: Stable kb Diagnosis - Pain in right toe(s) - Right Great Toe kb Followup: kb - With: Private Physician - When: 2 - 3 days - Reason: Recheck today's complaints, Continuance of care, Re-evaluation by your physician Followup: kb - With: Emergency Department - When: As needed - Reason: Worsening of condition Discharge Instructions: - Discharge Summary Sheet kb - Musculoskeletal Pain kb Forms: - Medication Reconciliation Form kb - Thank You Letter kb - Antibiotic Education kb - Prescription Opioid Use kb - Work release form bd Prescriptions: - Diclofenac Sodium 75 mg Oral tablet,delayed release (DR/EC) - take 1 tablet by ORAL route 2 times per day As needed; 30 tablet; Refills: 0, kb Product Selection Permitted Signatures: Dispatcher [employer] Sera Harper, JUANAC JOE-Stephan Moreno MD MD cha Garcia, Victoria RN RN vg1
--- NOTE | 2021-12-27 09:47 | ER ---
Nurse's Notes [facility] Name: Jonatan Longoria Age: 26 yrs Sex: Male : 1995 Arrival Date: 12/27/2021 Time: 08:22 Bed 18 Private MD: None, None Diagnosis: Pain in right toe(s)-Right Great Toe Presentation: 12/27 08:30 Chief complaint: Patient states: Right toe pain; states unsure if strained it at work; vg1 and last night states 'toe become stiff'. Coronavirus screen: Vaccine status: Patient reports receiving the 2nd dose of the covid vaccine. Client denies travel out of the [place] in the last 14 days. Ebola Screen: Patient negative for fever greater than or equal to 101.5 degrees Fahrenheit, and additional compatible Ebola Virus Disease symptoms. Initial Sepsis Screen: Does the patient meet any 2 criteria? No. Patient's initial sepsis screen is negative. Does the patient have a suspected source of infection? No. Patient's initial sepsis screen is negative. Risk Assessment: Do you want to hurt yourself or someone else? Patient reports no desire to harm self or others. Onset of symptoms was November 26, 2021. 08:30 Method Of Arrival: Ambulatory vg1 08:30 Acuity: ALEKSANDRA 4 vg1 Triage Assessment: 08:32 General: Appears uncomfortable, Behavior is calm, cooperative. Pain: Complains of pain vg1 in right first toe. Musculoskeletal: Circulation, motion, and sensation intact. Historical: - Allergies: 08:32 No Known Allergies; vg1 - Home Meds: 08:32 None [Active]; vg1 - PMHx: 08:32 None; vg1 - PSHx: 08:32 None; vg1 - Immunization history:: Client reports receiving the 2nd dose of the Covid vaccine. - Social history:: Smoking status: Reported history of juuling and/or vaping. Screenin:35 Abuse screen: Denies threats or abuse. Denies injuries from another. Nutritional bp screening: No deficits noted. Tuberculosis screening: No symptoms or risk factors identified. Fall Risk None identified. Assessment: 08:35 General: SEE TRIAGE NOTE. bp 10:31 Reassessment: PT D/C HOME AMBULATORY, DX WITH MUSCULOSKELETAL PAIN. bp Vital Signs: 08:30 BP 133 / 86; Pulse 67; Resp 16; Temp 98.0; Pulse Ox 99% ; Weight 124.28 kg; Height 6 vg1 ft. 0 in. (182.88 cm); Pain 9/10; 10:31 BP 137 / 65; Pulse 71; Resp 16; Temp 98; Pulse Ox 99% ; bp 08:30 Body Mass Index 37.16 (124.28 kg, 182.88 cm) vg1 ED Course: 08:22 Patient arrived in ED. as 08:22 None, None is Private Physician. as 08:24 [facility] Fajardo [facility]C [facility] kb 08:24 Stephan Gunn MD is Attending Physician. kb 08:32 Triage completed. vg1 08:32 Arm band placed on. vg1 08:34 Norberto Rincon, RN is Primary Nurse. bp 08:35 Patient has correct armband on for positive identification. Bed in low position. Call bp light in reach. Side rails up X2. 09:17 Foot Right 3 View XRAY In Process Unspecified. EDMS 10:31 No provider procedures requiring assistance completed. Patient did not have IV access bp during this emergency room visit. Administered Medications: No medications were administered Outcome: 09:46 Discharge ordered by . kb 10:31 Discharged to home ambulatory, with family. bp 10:31 Condition: stable 10:31 Discharge instructions given to patient, Instructed on discharge instructions, follow up and referral plans. medication usage, Demonstrated understanding of instructions, follow-up care, medications, Prescriptions given X 1. 10:33 Patient left the ED. bp Signatures: Dispatcher [employer] EDMS Sera Fajardo FNP-C FNP-Jennyfer Roberts as Norberto Rincon, RN RN bp Tesha Dillon, RN RN vg1
[2021-12-27 10:36] VITALS: O2SAT 99
[2021-12-27 10:37] VITALS: BP 137/65; TEMP 98
== END 2021-12-27 10:33 | disposition home or self-care (01) ==
LOC: ER 08:19
DX: M79.674 Pain in right toe(s) (principal)
CPT/HCPCS: 99283

== ENCOUNTER 2022-04-09 15:35 | Inpatient (IN) | payer SELFPAY ==
[2022-04-09 16:25] LABS: Absolute Lymphocytes (CBC) 1.9 K/uL (0.7-4.9); Hematocrit 43.9 % (39.6-49.0); MPV 8.2 fL (7.6-11.3); RBC Red Blood Cell Count 4.97 M/uL (4.33-5.43)
[2022-04-09 16:51] LABS: Potassium 3.7 mmol/L (3.5-5.1)
[2022-04-09 16:56] LABS: Troponin High Sensitivity 59.1 pg/mL (<58.9)
--- NOTE | 2022-04-09 17:26 | RAD REPORT ---
EXAM DESCRIPTION: RAD - Chest Single View - 04/09/2022 4:44 pm CLINICAL HISTORY: CHEST PAIN COMPARISON: Two view chest 02/08/2020 TECHNIQUE: AP portable chest image was obtained 04/09/2022 4:44 pm . FINDINGS: Lungs are clear. Heart and vasculature are normal. No measurable pleural effusion and no p neumothorax. No acute bony abnormality seen. No acute aortic findings suspected. IMPRESSION: No acute cardiopulmonary process. No significant change from comparison study.
--- NOTE | 2022-04-09 20:08 | ER ---
Nurse's Notes [facility] Name: Jonatan Longoria Age: 27 yrs Sex: Male : 1995 Arrival Date: 04/09/2022 Time: 15:36 Bed 23 [facility] MD: Diagnosis: Unstable angina;ST elevation (STEMI) myocardial infarction of unspecified site Presentation: 04/09 15:58 Chief complaint: Patient states: "I have been having this chest pain for months. it jd3 gets to the point that it hurts to breath and the pain takes my breath away if I breath a certain way.". Coronavirus screen: At this time, the client does not indicate any symptoms associated with coronavirus-19. Ebola Screen: No symptoms or risks identified at this time. Initial Sepsis Screen: Does the patient meet any 2 criteria? No. Patient's initial sepsis screen is negative. Does the patient have a suspected source of infection? No. Patient's initial sepsis screen is negative. Risk Assessment: Do you want to hurt yourself or someone else? Patient reports no desire to harm self or others. Onset of symptoms was February 07, 2022. 15:58 Method Of Arrival: Ambulatory jd3 15:58 Acuity: ALEKSANDRA 3 jd3 Historical: - Allergies: 16:00 No Known Allergies; jd3 - Home Meds: 16:00 None [Active]; jd3 - PMHx: 16:00 None; jd3 - PSHx: 16:00 None; jd3 - Immunization history:: Adult Immunizations up to date, Client reports receiving the 2nd dose of the Covid vaccine, Flu vaccine is not up to date. - Social history:: Smoking status: Patient reports the use of cigarette tobacco products, smokes one-half pack cigarettes per day. Screenin:26 Abuse screen: Denies threats or abuse. Denies injuries from another. Nutritional tw5 screening: No deficits noted. Tuberculosis screening: No symptoms or risk factors identified. Fall Risk None identified. Assessment: 17:26 Pain: Complains of pain in chest Pain currently is 4 out of 10 on a pain scale. Quality tw5 of pain is described as pressure, Pain began gradually. 17:26 General: Appears in no apparent distress. Behavior is calm, cooperative, appropriate tw5 for age. Cardiovascular: Heart tones S1 S2 present Capillary refill < 3 seconds is brisk in bilateral fingers Patient's skin is warm and dry. Pulses are 2+ in right radial artery and left radial artery. Respiratory: Airway is patent Trachea midline Respiratory effort is even, unlabored, Respiratory pattern is regular, Breath sounds are clear bilaterally. in right upper lobe, left upper lobe, left posterior upper lobe, right posterior upper lobe, left posterior lower lobe and right posterior middle lobe. 04/10 17:45 Pain: Pain does not radiate. arredondo Vital Signs: 04/09 16:00 BP 123 / 81; Pulse 64; Resp 18 S; Temp 98.2(TE); Pulse Ox 98% on R/A; Weight 129.27 kg jd3 (R); Height 6 ft. 0 in. (182.88 cm) (R); Pain 8/10; 17:26 BP 121 / 73; Pulse 60; Resp 18; Pulse Ox 98% on R/A; Pain 4/10; tw5 16:00 Body Mass Index 38.65 (129.27 kg, 182.88 cm) jd3 ED Course: 15:36 Patient arrived in ED. am2 15:46 Kun Wang DO is Attending Physician. ms3 16:00 Triage completed. jd3 16:01 Arm band placed on. EKG completed in triage. Results shown to MD. jd3 16:20 Inserted saline lock: 20 gauge in right antecubital area, using aseptic technique. jd3 Blood collected. 16:43 Basic Metabolic Panel Sent. ld1 16:43 Troponin HS Sent. ld1 16:46 XRAY Chest (1 view) In Process Unspecified. EDMS 17:26 Ale Mclean is Primary Nurse. tw5 17:26 Awaiting: awaiting repeat labs. tw5 17:26 Patient has correct armband on for positive identification. tw5 17:26 No provider procedures requiring assistance completed. Patient maintains SpO2 tw5 saturation greater than 95% on room air. 19:21 Attending Physician role handed off by Kun Wang DO ms3 19:21 Frank Claros MD is Attending Physician. ms3 19:43 Notified ED physician of a critical lab result(s). troponin 80.4. lp1 20:07 Ralph Payne is Hospitalizing Provider. kdr 04/10 07:57 Primary Nurse role handed off by Ale Mclean bd 17:44 playground monitor on. Pulse ox on. NIBP on. arredondo 17:44 IV discontinued, intact, Pressure dressing applied. arredondo Administered Medications: 04/09 20:38 Drug: Aspirin Chewable Tablet 324 mg Route: PO; ww Medication: 17:26 VIS not applicable for this client. tw5 Outcome: 20:07 Decision to Hospitalize by Provider. kdr 04/10 17:44 Discharged to home ambulatory. arredondo Condition: good Discharge instructions given to patient. 17:45 Patient left the ED. arredondo Signatures: Dispatcher [employer] EDMS Jasmin Carranza Kevin, MD MD kdr Pena, Laura, RN RN lp1 Bisi Saleh amFlynn Quinteros RN RN jd3 Kun Wang DO DO ms3 Amber Ho, RN RN ld1 Ale Mclean tw5 Ly Mclean, RN RN ww Saranya-StagerLitzy RN RN arredondo
--- NOTE | 2022-04-09 20:08 | EDPHYS ---
Physician Documentation [facility] Name: Jonatan Longoria Age: 27 yrs Sex: Male : 1995 Arrival Date: 04/09/2022 Time: 15:36 Bed 23 Private MD: ED Physician Frank Claros HPI: 04/09 16:11 This 27 yrs old Male presents to ER via Ambulatory with complaints of Chest ms3 Pain. 16:11 The patient or guardian reports chest pain that is located primarily in the substernal ms3 area. The pain does not radiate. Associated signs and symptoms: Pertinent negatives: abdominal pain, dizziness, nausea, vomiting. The chest pain is described as sharp. Duration: The patient or guardian reports multiple episodes. Duration: The patient or guardian reports a single episode, that is still ongoing, and unchanged, ongoing for 3 months. Modifying factors: The symptoms are alleviated by nothing. the symptoms are aggravated by nothing. Severity of pain: At its worst the pain was a 7 / 10 in the emergency department the pain is unchanged. Historical: - Allergies: 16:00 No Known Allergies; jd3 - Home Meds: 16:00 None [Active]; jd3 - PMHx: 16:00 None; jd3 - PSHx: 16:00 None; jd3 - Immunization history:: Adult Immunizations up to date, Client reports receiving the 2nd dose of the Covid vaccine, Flu vaccine is not up to date. - Social history:: Smoking status: Patient reports the use of cigarette tobacco products, smokes one-half pack cigarettes per day. ROS: 16:11 Constitutional: Negative for fever, and chills. ENT: Negative for injury, pain, and ms3 discharge, Neck: Negative for injury, pain, and swelling, Respiratory: Negative for shortness of breath, cough, wheezing, and pleuritic chest pain, Abdomen/GI: Negative for abdominal pain, nausea, vomiting, diarrhea, and constipation, MS/Extremity: Negative for injury and deformity, Skin: Negative for injury, rash, and discoloration. 16:11 Cardiovascular: Positive for chest pain. 16:11 All other systems are negative. Exam: 16:01 ECG was reviewed by the Attending Physician. ms3 16:11 Constitutional: This is a well developed, well nourished patient who is awake, alert, ms3 and in no acute distress. Head/Face: Normocephalic, atraumatic. Eyes: Pupils equal round and reactive to light, extra-ocular motions intact. Lids and lashes normal. Conjunctiva and sclera are non-icteric and not injected. Periorbital areas with no swelling, redness, or edema. Neck: Trachea midline, no cervical lymphadenopathy. Supple, full range of motion without nuchal rigidity, or vertebral point tenderness. No Meningismus. Chest/axilla: Normal chest wall appearance and motion. Nontender with no deformity. Cardiovascular: Regular rate and rhythm with a normal S1 and S2. No gallops, murmurs, or rubs. Normal PMI, no JVD. No pulse deficits. Respiratory: Lungs have equal breath sounds bilaterally, clear to auscultation and percussion. No rales, rhonchi or wheezes noted. No increased work of breathing, no retractions or nasal flaring. Abdomen/GI: Soft, non-tender, with normal bowel sounds. No distension or tympany. No guarding or rebound. No evidence of tenderness throughout. Skin: Warm, dry with normal turgor. Normal color with no rashes, no lesions, and no evidence of cellulitis. Psych: Awake, alert, with orientation to person, place and time. Behavior, mood, and affect are within normal limits. Vital Signs: 16:00 BP 123 / 81; Pulse 64; Resp 18 S; Temp 98.2(TE); Pulse Ox 98% on R/A; Weight 129.27 kg jd3 (R); Height 6 ft. 0 in. (182.88 cm) (R); Pain 8/10; 17:26 BP 121 / 73; Pulse 60; Resp 18; Pulse Ox 98% on R/A; Pain 4/10; tw5 16:00 Body Mass Index 38.65 (129.27 kg, 182.88 cm) jd3 MDM: 16:11 Patient medically screened. ms3 19:00 Transition of care: After a detail discussion of the patient's case, care is ms3 transferred to Frank Claros MD. 20:06 Data reviewed: vital signs, nurses notes, lab test result(s), EKG, radiologic studies. kdr Counseling: I had a detailed discussion with the patient and/or guardian regarding: the historical points, exam findings, and any diagnostic results supporting the discharge/admit diagnosis, lab results, radiology results, the need for further work-up and treatment in the hospital. 20:08 ED course: On my review of the patient's data evaluation of his presenting complaint. kdr He admits to intermittent chest discomfort that has been ongoing for weeks or months. Has been getting worse over the past few days. He has not had a previous evaluated. He is a smoker of about 4 to 5 cigarettes/day and there is a cardiac history and his family but he does not have specifics. 04/09 16:14 Order name: Basic Metabolic Panel; Complete Time: 17:53 ms3 04/09 16:14 Order name: CBC with Diff; Complete Time: 17:53 ms3 04/09 16:14 Order name: Troponin HS; Complete Time: 17:53 ms3 04/09 17:20 Order name: Troponin High Sensitivity: at 1920; Complete Time: 20:00 jd3 04/09 20:13 Order name: COVID-19 SARS RT PCR (Document "Date of Onset" if Symptomatic) [facility] 04/10 03:48 Order name: Troponin High Sensitivity [facility] 04/09 16:14 Order name: XRAY Chest (1 view); Complete Time: 17:53 ms3 04/09 16:14 Order name: EKG; Complete Time: 16:15 ms3 04/09 16:14 Order name: Cardiac monitoring; Complete Time: 16:19 ms3 04/10 03:48 Order name: Lipid Profile [facility] 04/10 03:58 Order name: LDL, Direct [facility]OH 04/10 09:43 Order name: Troponin High Sensitivity [facility] 04/10 13:38 Order name: NM [facility] 04/09 16:14 Order name: EKG - Nurse/Tech; Complete Time: 16:19 ms3 04/09 16:14 Order name: IV Saline Lock; Complete Time: 16:19 ms3 04/09 16:14 Order name: Labs collected and sent; Complete Time: 16:19 ms3 04/09 16:14 Order name: O2 Per Protocol; Complete Time: 16:20 ms3 04/09 16:14 Order name: O2 Sat Monitoring; Complete Time: 16:20 ms3 04/09 18:30 Order name: EKG - Nurse/Tech: repeat at 1920; Complete Time: 20:18 tw5 EC:01 Rate is 59 beats/min. Rhythm is regular. QRS [place] is Normal. Clinical impression: Sinus ms3 bradycardia. Interpreted by me. Administered Medications: 20:38 Drug: Aspirin Chewable Tablet 324 mg Route: PO; ww Disposition Summary: 04/09/22 20:07 Hospitalization Ordered Hospitalization Status: Observation kdr Provider: Ralph Payne Condition: Stable kdr Problem: new kdr Symptoms: are unchanged kdr Bed/Room Type: Standard kdr Location: [facility] ER HOLD(04/09/22 20:31) Room Assignment: ERHOLD-(04/09/22 20:31) mw Diagnosis - Unstable angina kdr - ST elevation (STEMI) myocardial infarction of unspecified site kdr Discharge Instructions: - Discharge Summary Sheet ms3 - Nonspecific Chest Pain, Adult ms3 Forms: - Medication Reconciliation Form kdr - SBAR form kdr - Work release form arredondo Signatures: Dispatcher [employer] EDYue Mckeon RN RN Frank Claros MD MD kdr Davies, Jonathon, RN RN jd3 Sims, Marcus, DO ms3 Diallo Mcleanfany tw5 Ly Mclean RN RN ww Corrections: (The following items were deleted from the chart) 20:31 20:07 Telemetry/MedSurg (observation) [facility] 20:31 20:07 kdr
[2022-04-09] MEDS ORDERED: ASPIRIN 81 MG CHEWABLE TABLET ONE (20:34)
--- NOTE | 2022-04-09 20:41 | P.HP ---
Certification for Inpatient Patient admitted to: Observation With expected LOS: <2 Midnights Patient will require the following post-hospital care: None Practitioner: I am a practitioner with admitting privileges, knowledge of patient current condition, hospital course, and medical plan of care. Services: Services provided to patient in accordance with Admission requirements found in Title 42 Section 412.3 of the Code of Federal Regulations Patient History Date of Service: 04/09/22 Reason for admission: Chest pain, elevated troponin History of Present Illness: 27-year-old male patient with no sniffing past medical history presents emergency department for chest pain. Patient ports that over the course of the last couple months he has had intermittent sharp substernal chest pain nonradiating with associated shortness of breath also reports suspected periods of apnea at night he was evaluated in the emergency department his initial high-sensitivity troponin was mildly elevated 59.1 this was repeated it went up slightly to 80.4 his EKG was without ST elevation ED provider wishes to admit under observation for ACS rule out. Allergies No Known Allergies Allergy (Unverified 01/08/13 09:50) - Past Medical/Surgical History -: None -: None Psychosocial/ Personal History: Patient lives at home, alone - Family History Father -: Heart disease, Diabetes Mother -: Heart disease, Diabetes - Social History Smoking Status: Current every day smoker Alcohol use: Yes CD- Drugs: No Caffeine use: Yes Place of Residence: Home Review of Systems 10-point ROS is otherwise unremarkable Cardiovascular: Chest Pain Physical Examination - Physical Exam General: Alert, In no apparent distress, Obese HEENT: Atraumatic, PERRLA, Mucous membr. moist/pink, EOMI, Sclerae nonicteric Neck: Supple, 2+ carotid pulse no bruit, No LAD, Without JVD or thyroid abnormality Respiratory: Clear to auscultation bilaterally, Normal air movement Cardiovascular: Regular rate/rhythm, Normal S1 S2 Capillary refill: <2 Seconds Gastrointestinal: Normal bowel sounds, No tenderness Musculoskeletal: No tenderness Integumentary: No rashes Neurological: Normal gait, Normal speech, Normal strength at 5/5 x4 extr, Normal tone, Normal affect Lymphatics: No axilla or inguinal lymphadenopathy - Studies Laboratory Data (last 24 hrs) 04/09/22 16:17: WBC 4.7, Hgb 14.9, Hct 43.9, Plt Count 207 04/09/22 16:17: Sodium 140, Potassium 3.7, BUN 10, Creatinine 0.77, Glucose 94 Assessment and Plan - Plan Assessment: Chest pain rule out ACS Plan: Chest pain rule out ACS: Atypical chest pain described as sharp on and off for the course of last 1 month, troponin mildly elevated trending up will need to continue trending troponin, consult cardiology. Echocardiogram to be ordered continue with aspirin, statin. Patient does report some symptoms suggestive of possible obstructive sleep apnea will need to follow-up with PCP for further evaluation of this. DVT PPX: Lovenox Code status:Full Discharge Plan: Home Plan to discharge in: 24 Hours - Advance Directives Does patient have a Living Will: No Does patient have a Durable POA for Healthcare: No - Code Status/Comfort Care Code Status Assessed: Yes (Full code) Critical Care: No Time Spent Managing Pts Care (In Minutes): 55
[2022-04-09 22:45] VITALS: BMI 38.6
[2022-04-09] MEDS ORDERED: MORPHINE 2 MG/ML SYR IV PRN (22:54)
[2022-04-09] MEDS ORDERED: ONDANSETRON 4 MG/2 ML VIAL IV PRN (22:54)
[2022-04-09] MEDS ORDERED: ATORVASTATIN 40 MG TAB PO SCH (22:54)
[2022-04-10] MEDS ORDERED: ATORVASTATIN 40 MG TAB ONE (01:36)
[2022-04-10 03:44] LABS: HDL Cholesterol 29 mg/dL (40-60)
[2022-04-10 03:48] LABS: Troponin High Sensitivity 126.7 pg/mL (<58.9)
[2022-04-10 03:58] LABS: LDL, Direct 82 mg/dL (100-129)
[2022-04-10 08:24] VITALS: BP 119/76; TEMP 98.1
[2022-04-10] MEDS ORDERED: ENOXAPARIN 40 MG/0.4 ML SQ ONE (08:36)
[2022-04-10] MEDS ORDERED: ASPIRIN 81 MG CHEWABLE TABLET ONE (08:36)
[2022-04-10] MEDS ORDERED: ASPIRIN EC 81 MG TAB PO SCH (09:00)
[2022-04-10] MEDS ORDERED: ENOXAPARIN 40 MG/0.4 ML SQ SCH (09:00)
--- NOTE | 2022-04-10 09:09 | EKG ---
Test Date: 2022-04-09 Test Time: 18:59:03 Consumer Insight Manager: MB MEASUREMENT RESULTS: Intervals: Rate: 55 AR: 160 QRSD: 92 QT: 474 QTc: 453 [place]: P: 47 AR: 160 QRS: 74 T: 31 INTERPRETIVE STATEMENTS: Sinus bradycardia Otherwise normal ECG Compared to ECG 04/09/2022 16:01:56 Sinus arrhythmia no longer present Electronically Signed On 04-10-22 09:08:03 CDT by Gage Gastelum
--- NOTE | 2022-04-10 09:10 | EKG ---
Test Date: 2022-04-09 Test Time: 16:01:56 Supervisor Lump Room: JADE MEASUREMENT RESULTS: Intervals: Rate: 59 [place]: 152 QRSD: 86 QT: 430 QTc: 425 [place]: P: 25 [place]: 152 QRS: 73 T: 18 INTERPRETIVE STATEMENTS: Sinus bradycardia with sinus arrhythmia Otherwise normal ECG Compared to ECG 09/26/2014 21:34:33 Sinus rhythm no longer present Electronically Signed On 04-10-22 09:08:10 CDT by aGge Gastelum
[2022-04-10] MEDS ORDERED: REGADENOSON 0.4 MG/5 ML SYR IV ONE (09:55)
--- NOTE | 2022-04-10 13:37 | RAD REPORT ---
EXAM DESCRIPTION: NM - Rest Stress Cardiac Imaging - 04/10/2022 1:19 pm CLINICAL HISTORY: Chest pain COMPARISON: None. TECHNIQUE: The patient was administered 10.2 mCi of Tc 99m Sestamibi prior to resting SPECT imaging of the heart. The patient was then administered 31.4 mCi of Tc 99m Sestamibi following exercise or ph armacologic stress. Multiplanar SPECT images were reviewed. FINDINGS: The end diastolic volume is 169 ml, the end systolic volume is 86 ml, and the ejection fra ction is 49 %. No stress-induced ischemic changes identified. Diminished activity is seen in the anterior wall near the apex and along the base and midportion of the inferior wall. These findings do not change between rest and stress imaging. IMPRESSION: No stress-induced ischemia. Small areas of fixed defects noted anterior wall near the apex and along the inferior wall. Attenuati on artifacts and scarring are both possible. End-diastolic volume is enlarged at 169 mL with 49% EF.
[2022-04-10 17:56] VITALS: O2SAT 98
--- NOTE | 2022-04-10 19:32 | CON ---
Date of Consultation: 04/10/2022 Reason For Consultation: Elevated troponin. History Of Present Illness: Mr. Longoria is 27, has a family history of heart disease, family history o f lupus and coronary artery disease and diabetes, comes in with an elevated triglycerides over 100, t roponin 126, has had pelvic heat stroke with body ache throughout. No specific location of _ pain. He was very diaphoretic, was working hard. His EKG is unremarkable. Chest x-ray is unremark able, but his troponin is mildly elevated. Past Medical History: As stated above. Allergies: NONE. Medications: At home are none. Review of Systems: Negative. Social History: Negative. Family History: Positive for CAD, lupus, and diabetes. Physical Examination: GENERAL: Obese, otherwise VITAL SIGNS: Stable, afebrile. HEENT: Negative. NECK: Supple without any lymphadenopathy, JVD, thyromegaly or bruit. CHEST: Clear to auscultation and percussion. CARDIAC: Exam revealed a regular rhythm and rate. No murmurs, gallops, or rubs. Abdomen: Benign, EXTREMITIES: Revealed no clubbing, cyanosis, or edema. Diagnostic Data: As stated earlier. Impression And Plan: Mildly elevated troponin, possibly secondary to rhabdomyolysis type and heat st roke. He had triglyceridemia, family history. He has obesity. I think it is reasonable to do a car diac workup on him with an echocardiogram and a stress test before we will make final decisions. Whe n he goes home, he should be on Tricor and a baby aspirin, and have primary care followup. I will be happy to see him in my office as well. JULIEN/ALBINA Voice ID: [id number] Report ID: [id number]
--- NOTE | 2022-04-10 23:00 | P.DS ---
Admission Date: 04/09/22 Discharge Date: 04/10/22 Disposition: ROUTINE DISCHARGE Reason for Admission: Chest pain, elevated troponin Consultations: Cardiology - Dr. Gastelum Procedures: Problem List Chest Pain, elevated troponin Hypertriglyceridemia Brief History of Present Illness: 27-year-old male patient with no sniffing past medical history presents emergency department for chest pain. Patient ports that over the course of the last couple months he has had intermittent sharp substernal chest pain nonradiating with associated shortness of breath also reports suspected periods of apnea at night. In the ED, tropoin was mildly elevated at 59 and increased to 80. EKG without ST changes. Also reported ~3 episodes of near heat strokes in the last few months from work. Last episode ~2 weeks. Hospital Course: Patient's troponins slightly increased and then improved. Cardiology was consulted and patient underwent stress testing which was negative. Workup did reveal hypertriglyceridemia in 500s. Discussed weight loss / diet. Recommended medication treatment and diet/weight loss. Follow up with cardiology in 3-4 weeks. Recommend establishing with a primary care doctor. Further discuss weight loss, lowering further risks for heart problems Vital Signs/Physical Exam: Temp Pulse Resp BP Pulse Ox 98.1 F 53 17 119/76 98 04/10/22 08:00 04/10/22 08:00 04/10/22 08:00 04/10/22 08:00 04/10/22 08:00 General: Alert, In no apparent distress, Oriented x3 HEENT: Sclerae nonicteric Respiratory: Clear to auscultation bilaterally Cardiovascular: No edema, Regular rate/rhythm Gastrointestinal: Soft and benign, Non-distended, No tenderness Musculoskeletal: No erythema, No tenderness Integumentary: No significant lesion Neurological: Normal speech, Normal affect Laboratory Data at Discharge: WBC 4.7 K/uL (4.3-10.9) 04/09/22 16:17 Hgb 14.9 g/dL (13.6-17.9) 04/09/22 16:17 Hct 43.9 % (39.6-49.0) 04/09/22 16:17 Plt Count 207 K/uL (152-406) 04/09/22 16:17 Sodium 140 mmol/L (136-145) 04/09/22 16:17 Potassium 3.7 mmol/L (3.5-5.1) 04/09/22 16:17 BUN 10 mg/dL (7-18) 04/09/22 16:17 Creatinine 0.77 mg/dL (0.55-1.3) 04/09/22 16:17 Glucose 94 mg/dL (74-106) 04/09/22 16:17 Triglycerides 535 mg/dL (<150) H 04/10/22 02:58 Cholesterol 159 mg/dL (<200) 04/10/22 02:58 LDL Cholesterol Direct 82 mg/dL (100-129) L 04/10/22 02:58 HDL Cholesterol 29 mg/dL (40-60) L 04/10/22 02:58 Cholesterol/HDL Ratio 5.48 04/10/22 02:58 Home Medications: Simvastatin 20 mg PO DAILY 30 Days #30 tablet 04/10/22 New Medications: Simvastatin 20 mg PO DAILY 30 Days #30 tablet Diet: AHA Followup: NONE,NONE [Primary Care Provider] - Time spent managing pt's care (in minutes): 40
--- NOTE | 2022-04-11 12:46 | ECHO ---
HEIGHT: 6 ft 0 in WEIGHT: 284 lb 15.865 oz DATE OF STUDY: 04/10/[address]: Gage Gastelum MD 2-DIMENSIONAL: YES M.MODE: YES DOPPLER: YES COLOR FLOW: YES TDS: PORTABLE: YES DEFINITY: BUBBLE STUDY: DIAGNOSIS: CHEST PAIN CARDIAC HISTORY: CATHERIZATION: NO SURGERY: NO PROSTHETIC VALVE: NO PACEMAKER: NO MEASUREMENTS (cm) DIASTOLIC (NORMALS) SYSTOLIC (NORMALS) IVSd 1.1 (0.6-1.2) LA Diam 3.0 (1.9-4.0) LVEF 50% LVIDd 4.9 (3.5-5.7) LVIDs 3.6 (2.0-3.5) %FS 25% LVPWd 1.2 (0.6-1.2) Ao Diam 3.1 (2.0-3.7) 2 DIMENSIONAL ASSESSMENT: RIGHT ATRIUM: NORMAL LEFT ATRIUM: NORMAL RIGHT VENTRICLE: NORMAL LEFT VENTRICLE: NORMAL TRICUSPID VALVE: NORMAL MITRAL VALVE: NORMAL PULMONIC VALVE: NORMAL AORTIC VALVE: NORMAL PERICARDIAL EFFUSION: NONE AORTIC ROOT: NORMAL LEFT VENTRICULAR WALL MOTION: NORMAL DOPPLER/COLOR FLOW: MILD TRICUSPID REGURGITATION. COMMENTS: MILD TRICUSPID REGURGITATION. NORMAL LEFT VENTRICULAR SIZE AND FUNCTION. NO WALL MOTION ABNORMALITY. NO EFFUSION. TECHNOLOGIST: CARTER ESPINAL
--- NOTE | 2022-04-11 13:14 | TREADPHA ---
DX: CHEST PAIN Date of Study: 04/10/2022 Ht: 6' 0 " Wt: 284 lb 15.865 oz Consulting Physician: ARYA MEDICATIONS: ASPIRIN, LIPITOR, LOVENOX, ZOFRAN HISTORY: NO HISTORY PHYSICIAL EXAMINATION: RESTING B.P.: 116/67 RESTING H.R.: 61 RESTING EKG: NORMAL PROTOCOL: PHARMACOLOGIC EXERCISE TIME: 3:30 B.P. AT [place]AK STRESS: 118/63 IMPRESSION: LEXISCAN STRESS TEST PERFORMED. CARDIOLITE INJECTED PER PROTOCOL. SEE NUCLEAR MEDICINE REPORT. NO SUPRAVENTRICULAR TACHYCARDIA. NO VENTRICULAR TACHYCARDIA. NO ARRHYTHMIAS NOTED. RESPIRATORY EVEN NONLABORED. PATIENT TOLERATED WELL.
== END 2022-04-10 18:07 | disposition home or self-care (01) | DRG 642 ==
LOC: ER 15:35 → ERHOLD 21:10 → OBSVTOIN 04-10 09:06
PROVIDERS: ADMIT Hospitalist; ATTEND Hospitalist
DX: E78.1 Pure hyperglyceridemia (principal); R07.9 Chest pain, unspecified; E66.9 Obesity, unspecified; Z68.38 Body mass index [BMI] 38.0-38.9, adult; Z71.3 Dietary counseling and surveillance; F17.210 Nicotine dependence, cigarettes, uncomplicated; R77.8 Other specified abnormalities of plasma proteins; Z83.3 Family history of diabetes mellitus; Z82.49 Family history of ischemic heart disease and other diseases of the circulatory system; Z20.822 Contact with and (suspected) exposure to COVID-19
CPT/HCPCS: 36415; 71045; 78452; 80048; 80061; 84484; 85025; 93005; 93017; 93306; 99285; A9500; G0378; J1650; J2785; U0003

== ENCOUNTER 2022-06-26 13:51 | Emergency (ER) | payer SELFPAY ==
--- NOTE | 2022-06-26 16:46 | ER ---
Nurse's Notes [facility] Name: Jonatan Longoria Age: 27 yrs Sex: Male : 1995 Arrival Date: 06/26/2022 Time: 13:55 Bed 10 Private MD: Diagnosis: Encounter for screening for other viral diseases Presentation: 06/26 14:18 Chief complaint: Patient states: woke up today with no taste or smell, was sent by his iw boss, no cough, no body aches, has had three home COVID tests are negative. Coronavirus screen: Client presents with at least one sign or symptom that may indicate coronavirus-19. Ebola Screen: Patient negative for fever greater than or equal to 101.5 degrees Fahrenheit, and additional compatible Ebola Virus Disease symptoms Patient denies exposure to infectious person. Patient denies travel to an Ebola-affected area in the 21 days before illness onset. No symptoms or risks identified at this time. Initial Sepsis Screen: Does the patient meet any 2 criteria? No. Patient's initial sepsis screen is negative. Does the patient have a suspected source of infection? No. Patient's initial sepsis screen is negative. Risk Assessment: Do you want to hurt yourself or someone else? Patient reports no desire to harm self or others. Onset of symptoms was June 26, 2022. 14:18 Method Of Arrival: Ambulatory 14:18 Acuity: ALEKSANDRA 4 Triage Assessment: 16:58 General: Appears in no apparent distress. obese, Behavior is calm, cooperative, jh5 appropriate for age. Pain: Denies pain. Historical: - Allergies: 14:19 No Known Allergies; iw - Home Meds: 14:19 None [Active]; iw - PMHx: 14:19 Sleep apnea; iw - Immunization history:: Adult Immunizations up to date. - Social history:: Smoking status: Patient denies any tobacco usage or history of. Screenin:57 Abuse screen: Denies threats or abuse. Denies injuries from another. Nutritional jh5 screening: No deficits noted. Tuberculosis screening: No symptoms or risk factors identified. Fall Risk None identified. Vital Signs: 14:18 BP 121 / 87; Pulse 78; Resp 16; Temp 98.6; Pulse Ox 97% on R/A; Weight 133.81 kg; iw Height 6 ft. 0 in. (182.88 cm); 14:18 Body Mass Index 40.01 (133.81 kg, 182.88 cm) iw ED Course: 13:55 Patient arrived in ED. mr 14:03 Stephan Pham PA is PHCP. cp 14:03 Stephan Gunn MD is Attending Physician. cp 14:19 Triage completed. iw 14:21 Arm band placed on. iw 14:33 Tatyana Hammer, RN is Primary Nurse. jh5 16:57 Patient has correct armband on for positive identification. jh5 16:57 No provider procedures requiring assistance completed. Patient did not have IV access jh5 during this emergency room visit. Administered Medications: No medications were administered Medication: 16:59 VIS not applicable for this client. 5 Outcome: 16:45 Discharge ordered by . cp 16:58 Discharged to home ambulatory, with significant other. jh5 16:58 Condition: good 16:58 Discharge instructions given to patient, significant other, Instructed on discharge instructions, follow up and referral plans. safety practices, Demonstrated understanding of instructions, follow-up care. 17:00 Patient left the ED. 5 Signatures: Rosa Hare Cinthia Lin, RN RN Stephan Pham PA PA cp Tatyana Hammer, RN RN 5 Corrections: (The following items were deleted from the chart) 14:20 14:19 PMHx: None; iw iw 14:21 14:18 Pulse 78bpm; Resp 16bpm; Pulse Ox 97% RA; Temp 98.6F; 133.81 kg; Height 6 ft. 0 iw in.; BMI: 40.0; iw
--- NOTE | 2022-06-26 16:46 | EDPHYS ---
Physician Documentation [facility] Name: Jonatan Longoria Age: 27 yrs Sex: Male : 1995 Arrival Date: 06/26/2022 Time: 13:55 Bed 10 Private MD: ED Physician Stephan Gunn HPI: 06/26 15:00 This 27 yrs old Male presents to ER via Ambulatory with complaints of Rule out cp Covid. 15:00 Type of Exposure: COVID-19. cp 15:00 Context: The problem was sustained at work. Symptoms: loss of taste and smell that cp started this morning. Historical: - Allergies: 14:19 No Known Allergies; iw - Home Meds: 14:19 None [Active]; iw - PMHx: 14:19 Sleep apnea; iw - Immunization history:: Adult Immunizations up to date. - Social history:: Smoking status: Patient denies any tobacco usage or history of. ROS: 15:05 Constitutional: Negative for body aches, chills, fever, poor PO intake. cp 15:05 Eyes: Negative for injury, pain, redness, and discharge. cp 15:05 ENT: Negative for drainage from ear(s), ear pain, sore throat, difficulty swallowing, difficulty handling secretions. 15:05 Cardiovascular: Negative for chest pain, edema, palpitations. 15:05 Respiratory: Negative for cough, shortness of breath, wheezing. 15:05 Abdomen/GI: Negative for abdominal pain, nausea, vomiting, and diarrhea. 15:05 Neuro: Negative for altered mental status, dizziness, headache, weakness. 15:05 All other systems are negative. Exam: 15:10 Constitutional: The patient appears in no acute distress, alert, awake, non-toxic, well cp developed, well nourished, obese. 15:10 Head/Face: Normocephalic, atraumatic. cp 15:10 Eyes: Periorbital structures: Conjunctiva: normal, no exudate, no injection, Sclera: no appreciated abnormality, Lids and lashes: appear normal, bilaterally. 15:10 ENT: External ear(s): are unremarkable, Nose: is normal, Mouth: Lips: moist, Oral mucosa: pink and intact, moist, Posterior pharynx: Airway: no evidence of obstruction, patent, Tonsils: no enlargement, no exudate, erythema, that is mild, exudate, is not appreciated. 15:10 Neck: ROM/movement: is normal, is supple, without pain, no range of motions limitations, no meningismus, Lymph nodes: no appreciated lymphadenopathy. 15:10 Chest/axilla: Inspection: normal. 15:10 Cardiovascular: Rate: normal, Rhythm: regular. 15:10 Respiratory: the patient does not display signs of respiratory distress, Respirations: normal, no use of accessory muscles, no retractions, labored breathing, is not present, Breath sounds: are clear throughout, no decreased breath sounds, no stridor, no wheezing. 15:10 Abdomen/GI: Inspection: abdomen appears normal, Palpation: abdomen is soft and non-tender, in all quadrants. 15:10 Back: pain, is absent, ROM is normal. 15:10 Skin: cellulitis, is not appreciated, no rash present. 15:10 Neuro: Orientation: to person, place \\T\\ time. Mentation: is normal. Vital Signs: 14:18 BP 121 / 87; Pulse 78; Resp 16; Temp 98.6; Pulse Ox 97% on R/A; Weight 133.81 kg; iw Height 6 ft. 0 in. (182.88 cm); 14:18 Body Mass Index 40.01 (133.81 kg, 182.88 cm) iw MDM: 14:21 Patient medically screened. haydee 16:45 Data reviewed: vital signs, nurses notes, lab test result(s). cp 16:45 Counseling: I had a detailed discussion with the patient and/or guardian regarding: the cp historical points, exam findings, and any diagnostic results supporting the discharge/admit diagnosis, lab results, to return to the emergency department if symptoms worsen or persist or if there are any questions or concerns that arise at home. Response to treatment: the patient's symptoms have mildly improved after treatment, and as a result, I will discharge patient. 06/26 14:30 Order name: SARS-COV-2 RT PCR (Document "Date of Onset" if Symptomatic); Complete Time: kc6 16:41 06/26 14:30 Order name: Flu; Complete Time: 16:41 kc6 Administered Medications: No medications were administered Disposition Summary: 06/26/22 16:45 Discharge Ordered Location: Home cp Problem: new cp Symptoms: are unchanged cp Condition: Stable cp Diagnosis - Encounter for screening for other viral diseases cp Followup: cp - With: Private Physician - When: 2 - 3 days - Reason: Worsening of condition Discharge Instructions: - Discharge Summary Sheet cp - COVID-19: What Your Test Results Mean - [facility] cp - COVID-19 Frequently Asked Questions cp Forms: - Medication Reconciliation Form cp - Thank You Letter cp - Antibiotic Education cp - Prescription Opioid Use cp - Work release form jh5 Signatures: Dispatcher [employer] EDStephan Ellis MD MD cha Williams, Irene, RN RN iw Stephan Pham PA PA Tatyana Menjivar RN RN jh5 Corrections: (The following items were deleted from the chart) 14:20 14:19 PMHx: None; saumya
[2022-06-26 17:25] VITALS: BP 121/87; TEMP 98.6; O2SAT 97
== END 2022-06-26 17:00 | disposition home or self-care (01) ==
LOC: ER 13:51
DX: R43.8 Other disturbances of smell and taste (principal); Z20.822 Contact with and (suspected) exposure to COVID-19
CPT/HCPCS: 87804; 99281; U0003

== ENCOUNTER 2023-01-26 04:39 | Emergency (ER) | payer SELFPAY ==
[2023-01-26] MEDS ORDERED: MULTIVITAMINS 10 ML VIAL (INJ) IV ONE (05:11)
[2023-01-26] MEDS ORDERED: THIAMINE 200 MG/2 ML INJ ONE (05:11)
[2023-01-26] MEDS ORDERED: ONDANSETRON 4 MG/2 ML VIAL ONE (05:11)
[2023-01-26 05:12] LABS: Absolute Lymphocytes (CBC) 1.7 K/uL (0.7-4.9); Hematocrit 41.4 % (39.6-49.0); Lymphocytes % 24.9 % (15.3-44.8); MCV 87.8 fL (80-100); MPV 8.3 fL (7.6-11.3); RBC Red Blood Cell Count 4.72 M/uL (4.33-5.43)
[2023-01-26] MEDS ORDERED: FOLIC ACID 5 MG/ML VIAL ONE (05:12)
[2023-01-26] MEDS ORDERED: NA CHLORIDE 0.9% 2,000 ML ONE (05:12)
[2023-01-26 05:21] LABS: Protime INR 1.07
[2023-01-26 05:35] LABS: ALT/SGPT 119 U/L (16-61); AST/SGOT 55 U/L (15-37); Albumin 3.9 g/dL (3.4-5.0); Alkaline Phosphatase 72 U/L (45-117); BUN Blood Urea Nitrogen 9 mg/dL (7-18); Bicarbonate 25 mmol/L (21-32); Bilirubin Direct 0.1 mg/dL (0-0.2); Bilirubin Total 0.4 mg/dL (0.2-1.0); Glomerular Filtration Rate 122 ml/min (=/>90); Glucose Level 144 mg/dL (74-106); Protein, Total 7.6 g/dL (6.4-8.2); Sodium Level 139 mmol/L (136-145); Troponin High Sensitivity 14.6 pg/mL (<58.9)
[2023-01-26] MEDS ORDERED: FAMOTIDINE 20 MG/2 ML VIAL IV ONE (06:00)
[2023-01-26] MEDS ORDERED: POTASSIUM 25 MEQ EFFERV TAB ONE (06:00)
[2023-01-26] MEDS ORDERED: KCL 20 MEQ/100 mL IVPB 100 ML IV ONE (06:00)
--- NOTE | 2023-01-26 07:20 | RAD REPORT ---
EXAM DESCRIPTION: RAD - Chest Single View - 01/26/2023 7:03 am CLINICAL HISTORY: DYSPNEA COMPARISON: Chest Single View dated 04/09/2022; Chest Pa And Lat (2 Views) dated 02/08/2020; CHEST PA AND LAT 2 VIEW dated 01/14/2014; CHEST PA AND LAT 2 VIEW dated 01/08/2013 FINDINGS: Lines: None. Lungs: Diffuse prominence of the pulmonary interstitium. Decreased lung volumes accentuates the pulmo nary vasculature. No definite edema. No consolidation. Pleural: No significant pleural effusions or pneumothorax. Cardiac: The heart size is within normal limits. Mediastinum: Within normal limits. Bones: No acute fractures. Other: None IMPRESSION: Low lung volumes accentuate the pulmonary vasculature. No definite acute process.
[2023-01-26 09:55] VITALS: TEMP 98.2
[2023-01-26 09:58] VITALS: BP 106/62; O2SAT 96
--- NOTE | 2023-01-28 13:09 | EKG ---
Test Date: 2023-01-26 Test Time: 04:58:31 Professor Of Biological Sciences: NILAM MEASUREMENT RESULTS: Intervals: Rate: 91 [place]: 166 QRSD: 96 QT: 374 QTc: 460 [place]: P: 40 [place]: 166 QRS: 14 T: 27 INTERPRETIVE STATEMENTS: Normal sinus rhythm Normal ECG Electronically Signed On 01-28-23 13:05:17 CDT by Twan Maza
--- NOTE | 2023-01-28 13:09 | EKG ---
Test Date: 2023-01-26 Test Time: 06:51:13 Interactive Multimedia Designer: MEASUREMENT RESULTS: Intervals: Rate: 87 OR: 164 QRSD: 94 QT: 392 QTc: 471 [place]: P: 38 OR: 164 QRS: 38 T: 34 INTERPRETIVE STATEMENTS: Normal sinus rhythm Normal ECG Compared to ECG 01/26/2023 04:58:31 No significant changes Electronically Signed On 01-28-23 13:05:09 CDT by Twan Maza
--- NOTE | 2023-02-08 16:15 | ER ---
Nurse's Notes [facility] Name: Jonatan Longoria Age: 28 yrs Sex: Male : 1995 Arrival Date: 01/26/2023 Time: 04:43 Bed 4 Private MD: Diagnosis: Alcohol abuse with intoxication;Acute gastritis;Chest pain, unspecified;Hypokalemia Presentation: 01/26 04:43 Chief complaint: EMS states: 28 year old male. he reports drinking a lot of alcohol ha1 last night and is feeling chest pain. pt. is ambulatory. AOX4. Coronavirus screen: Vaccine status:. 04:43 Method Of Arrival: EMS: [facility] ha1 04:43 Ebola Screen: No symptoms or risks identified at this time. Initial Sepsis Screen: Does ha1 the patient meet any 2 criteria? No. Patient's initial sepsis screen is negative. Does the patient have a suspected source of infection? No. Patient's initial sepsis screen is negative. Risk Assessment: Do you want to hurt yourself or someone else? Patient reports no desire to harm self or others. Onset of symptoms was January 26, 2023. 04:43 Acuity: ALEKSANDRA 3 ha1 Triage Assessment: 04:43 General: Appears comfortable, Behavior is calm, cooperative. Pain: Complains of pain in ha1 chest Pain does not radiate. Pain currently is 8 out of 10 on a pain scale. Quality of pain is described as pressure. EENT: No signs and/or symptoms were reported regarding the EENT system. Neuro: Level of Consciousness is awake, alert, obeys commands, Oriented to person, place, time, situation. Cardiovascular: Capillary refill < 3 seconds Patient's skin is warm and dry. Cardiovascular: Reports chest pain, Heart tones S1 S2 present Rhythm is sinus rhythm. Respiratory: Reports. Respiratory: Airway is patent Respiratory effort is even, unlabored, Respiratory pattern is regular, symmetrical. Respiratory: Reports shortness of breath at rest Onset: The symptoms/episode began/occurred today, the patient has mild shortness of breath. GI: No signs and/or symptoms were reported involving the gastrointestinal system. Abdomen is non-distended, obese, Bowel sounds present X 4 quads. : No signs and/or symptoms were reported regarding the genitourinary system. Historical: - Allergies: 04:43 No Known Allergies; ha1 - PMHx: 04:43 Sleep Apnea; Hypercholesterolemia; chest palpitation; ha1 - PSHx: 04:43 None; ha1 - Immunization history:: Adult Immunizations up to date. - Social history:: Smoking status: unknown. - Family history:: not pertinent. Screenin:43 Abuse screen: Denies threats or abuse. Denies injuries from another. Nutritional ha1 screening: No deficits noted. Tuberculosis screening: No symptoms or risk factors identified. 07:27 [facility] ED Fall Risk Assessment (Adult) History of falling in the last 3 months, ko1 including since admission No falls in past 3 months (0 pts) Confusion or Disorientation No (0 pts) Intoxicated or Sedated Yes (3 pts) Impaired Gait Mobility Assist Device Used No (0 pt) Altered Elimination No (0 pt) Score/Fall Risk Level 3 or more points = High Risk Oriented to surroundings, Maintained a safe environment, Educated pt \T\ family on fall prevention, incl call for assistance when getting out of bed, Assessed \T\ reinforced patient's understanding of fall precautions, Provided non-skid footwear, Hourly rounding (assess needs \T\ fall precautionary measures) done, Used ambulatory aids as needed (educated on \T\ assisted with), Used gait belt as appropriate Implemented a Fall Risk Plan of Care, Apply high fall risk patient identification: yellow non skid footwear/ fall signage, Remained w/in arm's length of patient and in sight while toileting, Offered frequent toileting (1:1 observation), Remained with patient while ambulating, Utilized family, sitter, or virtual protector plate attacher as indicated. Assessment: 04:43 Reassessment: see triage assessment. ha1 04:43 Respiratory: Airway is patent Respiratory effort is even, unlabored, Respiratory ha1 pattern is regular, symmetrical, Breath sounds are clear bilaterally. 05:30 Reassessment: Patient and/or family updated on plan of care and expected duration. Pain ha1 level reassessed. Patient is alert, oriented x 3, equal unlabored respirations, skin warm/dry/pink. 06:30 Reassessment: Patient and/or family updated on plan of care and expected duration. Pain ha1 level reassessed. Patient is alert, oriented x 3, equal unlabored respirations, skin warm/dry/pink. Patient states feeling better. Patient states symptoms have improved. 07:27 Cardiovascular: No deficits noted. ko1 Vital Signs: 05:02 BP 121 / 79; Pulse 94; Resp 15 S; Temp 98.2; Pulse Ox 95% ; Weight 113.4 kg; Height 6 ha1 ft. 0 in. ; Pain 8/10; 05:40 BP 112 / 74; Pulse 88; Resp 13 S; Pulse Ox 93% on R/A; ha1 06:48 BP 106 / 62; Pulse 93; Resp 17 S; Pulse Ox 96% ; ha1 05:02 Body Mass Index 33.91 (113.40 kg, 182.88 cm) ha1 05:02 Pain Scale: Adult ha1 ED Course: 04:43 Patient arrived in ED. wm 04:43 Stephan Gunn MD is Attending Physician. haydee 04:43 Arm band placed on right wrist. ha1 04:43 Patient has correct armband on for positive identification. Bed in low position. Call ha1 light in reach. Side rails up X 1. Adult w/ patient. 05:01 Ina Brown RN is Primary Nurse. ha1 05:30 Acetaminophen Sent. ha1 05:30 Basic Metabolic Panel Sent. ha1 05:42 Triage completed. ha1 06:36 Twan Maza MD is Referral Physician. [facility] 07:05 Chest Single View XRAY In Process Unspecified. EDMS 07:27 No provider procedures requiring assistance completed. IV discontinued, intact, ko1 bleeding controlled, No redness/swelling at site. Pressure dressing applied. Administered Medications: 05:00 Drug: NS 0.9% IV 1000 ml Route: IV; Rate: 1 bolus; Site: right antecubital; ha1 05:00 Drug: Banana Bag - (NS 0.9% IV 1000 ml, foLIC Acid IVPB 1 mg, Thiamine IV 100 mg, ha1 Multivitamin IV 1 amp) Route: IV; Rate: 500 ml/hr; Site: right antecubital; 05:00 Drug: Ondansetron IVP 4 mg Route: IVP; Site: right antecubital; ha1 07:19 Follow up: Response: No adverse reaction ha1 05:55 Drug: Famotidine IVP 20 mg Route: IVP; Site: right antecubital; ha1 06:00 Follow up: Response: No adverse reaction ha1 06:00 Drug: Potassium Chloride IV 20 mEq Route: IV; Rate: per protocol; Site: right ha1 antecubital; 06:30 Follow up: Response: No adverse reaction ha1 06:00 Drug: Potassium PO Effervescent Tablet 50 mEq Route: PO; ha1 06:30 Follow up: Response: No adverse reaction ha1 Medication: 07:27 VIS not applicable for this client. ko1 Outcome: 06:36 Discharge ordered by . haydee 07:37 Discharged to home ambulatory, with family. ko1 07:37 Condition: good 07:37 Discharge instructions given to patient, family, Instructed on discharge instructions, follow up and referral plans. medication usage, Demonstrated understanding of instructions, follow-up care, medications, Prescriptions given X 1. 07:45 Patient left the ED. ko1 Signatures: Dispatcher [employer] EDMS Stephan Gunn MD MD cha Marsh, Wendy wm Ayala, Heidy, RN RN ha1 Donna Saxena RN RN ko1 Corrections: (The following items were deleted from the chart) 05:29 05:29 Banana Bag - (NS 0.9% IV 1000 ml, foLIC Acid IVPB 1 mg, Thiamine IV 100 mg, ha1 Multivitamin IV 1 amp) IV at 500 ml/hr in right antecubital ha1 05:29 05:29 NS 0.9% IV 1000 ml, foLIC Acid IVPB 1 mg, Thiamine IV 100 mg, Multivitamin IV 1 ha1 amp IV at 500 ml/hr in right antecubital ha1 05:30 05:28 Ondansetron IVP 4 mg IVP in right antecubital 1 ha1
--- NOTE | 2023-02-08 16:15 | EDPHYS ---
Physician Documentation [facility] Name: Jonatan Longoria Age: 28 yrs Sex: Male : 1995 Arrival Date: 01/26/2023 Time: 04:43 Bed 4 Private MD: ED Physician Stephan Gunn HPI: 01/26 05:10 This 28 yrs old Male presents to ER via Unassigned with complaints of haydee Shortness Of Breath. 05:13 The patient has shortness of breath with light activity. Onset: The symptoms/episode haydee began/occurred last night. The patient's shortness of breath has no apparent modifying factors. The patient or guardian reports chest pain that is located primarily in the anterior chest wall, bilaterally. The pain does not radiate. Associated signs and symptoms: Pertinent positives: non-productive cough. Severity of symptoms: At their worst the symptoms were mild moderate in the emergency department the symptoms are unchanged. The chest pain is described as a pressure. Historical: - Allergies: 04:43 No Known Allergies; ha1 - PMHx: 04:43 Sleep Apnea; Hypercholesterolemia; chest palpitation; ha1 - PSHx: 04:43 None; ha1 - Immunization history:: Adult Immunizations up to date. - Social history:: Smoking status: unknown. - Family history:: not pertinent. ROS: 05:11 Constitutional: Negative for fever, chills, and weight loss, Eyes: Negative for injury, haydee pain, redness, and discharge, ENT: Negative for injury, pain, and discharge, Neck: Negative for injury, pain, and swelling, Abdomen/GI: Negative for abdominal pain, nausea, vomiting, diarrhea, and constipation, Back: Negative for injury and pain, : Negative for injury, bleeding, discharge, and swelling, MS/Extremity: Negative for injury and deformity, Skin: Negative for injury, rash, and discoloration, Neuro: Negative for headache, weakness, numbness, tingling, and seizure, Psych: Negative for depression, anxiety, suicide ideation, homicidal ideation, and hallucinations, Allergy/Immunology: Negative for hives, rash, and allergies, Endocrine: Negative for neck swelling, polydipsia, polyuria, polyphagia, and marked weight changes, Hematologic/Lymphatic: Negative for swollen nodes, abnormal bleeding, and unusual bruising. 05:11 Cardiovascular: Positive for chest pain. 05:11 Respiratory: Positive for cough, shortness of breath. Exam: 05:11 Constitutional: This is a well developed, well nourished patient who is awake, alert, haydee and in no acute distress. Head/Face: Normocephalic, atraumatic. Eyes: Pupils equal round and reactive to light, extra-ocular motions intact. Lids and lashes normal. Conjunctiva and sclera are non-icteric and not injected. Cornea within normal limits. Periorbital areas with no swelling, redness, or edema. ENT: Nares patent. No nasal discharge, no septal abnormalities noted. Tympanic membranes are normal and external auditory canals are clear. Oropharynx with no redness, swelling, or masses, exudates, or evidence of obstruction, uvula midline. Mucous membranes moist. Neck: Trachea midline, no thyromegaly or masses palpated, and no cervical lymphadenopathy. Supple, full range of motion without nuchal rigidity, or vertebral point tenderness. No Meningismus. Chest/axilla: Normal chest wall appearance and motion. Nontender with no deformity. No lesions are appreciated. Cardiovascular: Regular rate and rhythm with a normal S1 and S2. No gallops, murmurs, or rubs. Normal PMI, no JVD. No pulse deficits. Respiratory: Lungs have equal breath sounds bilaterally, clear to auscultation and percussion. No rales, rhonchi or wheezes noted. No increased work of breathing, no retractions or nasal flaring. Abdomen/GI: Soft, non-tender, with normal bowel sounds. No distension or tympany. No guarding or rebound. No evidence of tenderness throughout. Back: No spinal tenderness. No costovertebral tenderness. Full range of motion. Male : Normal genitalia with no discharge or lesions. Skin: Warm, dry with normal turgor. Normal color with no rashes, no lesions, and no evidence of cellulitis. MS/ Extremity: Pulses equal, no cyanosis. Neurovascular intact. Full, normal range of motion. Psych: Awake, alert, with orientation to person, place and time. Behavior, mood, and affect are within normal limits. 05:11 Neuro: Orientation: is normal, appropriate for stated age, no acute changes, Mentation: slow to respond, Memory: unable to test, Cranial nerves: grossly normal, is grossly normal based on the patient's age, no acute changes, Cerebellar function: is grossly normal, is grossly normal based on the patient's age, no acute changes, Sensation: unable to test, Gait: not tested. seizure activity, is not displayed by the patient. 05:17 ECG was reviewed by the Attending Physician. [facility] 05:24 Musculoskeletal/extremity: ROM: no acute changes, intact in all extremities, haydee Circulation is intact in all extremities. Pulses: Sensation intact. Compartment Syndrome exam of affected extremity: is normal. Weight bearing: able to fully bear weight, DVT Exam: No signs of deep vein thrombosis. no pain, no swelling, no tenderness, negative Homans' sign noted on exam, no appreciated bluish discoloration, no erythema, no increased warmth. 06:59 ECG was reviewed by the Attending Physician. [facility] Vital Signs: 05:02 BP 121 / 79; Pulse 94; Resp 15 S; Temp 98.2; Pulse Ox 95% ; Weight 113.4 kg; Height 6 ha1 ft. 0 in. ; Pain 8/10; 05:40 BP 112 / 74; Pulse 88; Resp 13 S; Pulse Ox 93% on R/A; ha1 06:48 BP 106 / 62; Pulse 93; Resp 17 S; Pulse Ox 96% ; ha1 05:02 Body Mass Index 33.91 (113.40 kg, 182.88 cm) 1 05:02 Pain Scale: Adult ha1 MDM: 04:45 Patient medically screened. [facility] 05:14 Differential diagnosis: Anemia Anxiety Reaction CHF exacerbation, Chronic Obstructive haydee Pulmonary Disease abnormal EKG, acute myocardial infarction, acute pericarditis, coronary artery disease chest wall pain, congestive heart failure cholecystitis, Cholelithiasis esophagitis, gastritis, hiatal hernia, pancreatitis, peptic ulcer disease, pneumonia, stable angina, unstable angina, pneumonia, pulmonary edema, Pulmonary Embolism reactive airway disease, Unstable Angina. Antibiotic administration: Not indicated. HEART Score: History: Slightly Suspicious (0), ECG: Non specific repolarization disturbance / LBTB / PM (1), Age: < or = 45 years (0), Risk Factors: > or = 3 Risk factors for atherosclerotic disease (2), [Hypercholesterolemia] [Hypertension] [+ Family HX] [Obesity] Troponin: < or = 1 x Normal Limit (0). TIM Risk Score: 1 - Three or more CAD risk factors, TOTAL SCORE = 1. Immunization status:. Data reviewed: vital signs, nurses notes, lab test result(s), EKG, radiologic studies, plain films. Consideration of Admission/Observation Patient was admitted/placed on observation. Escalation of care including admission/observation considered. I considered the following discharge prescriptions or medication management in the emergency department Medications were administered in the Emergency Department. See MAR. Test considered but Not performed: CT: CT CHEST RO PE. Care significantly affected by the following chronic conditions: Hypertension, Obesity. Counseling: I had a detailed discussion with the patient and/or guardian regarding: the historical points, exam findings, and any diagnostic results supporting the discharge/admit diagnosis, lab results, radiology results, the need for further work-up and treatment in the hospital. 01/26 04:45 Order name: Acetaminophen; Complete Time: 05:38 [facility] 01/26 04:45 Order name: Basic Metabolic Panel; Complete Time: 05:38 [facility] 01/26 04:45 Order name: CBC with Diff; Complete Time: 05:24 01/26 04:45 Order name: ETOH Level; Complete Time: 05:32 01/26 04:45 Order name: Hepatic Function; Complete Time: 05:38 [facility] 01/26 04:45 Order name: PT-INR; Complete Time: 05:24 [facility] 01/26 04:45 Order name: Ptt, Activated; Complete Time: 05:24 [facility] 01/26 04:45 Order name: Salicylate; Complete Time: 05:32 01/26 04:45 Order name: Troponin High Sensitivity; Complete Time: 05:38 01/26 04:51 Order name: SARS-COV-2 RT PCR; Complete Time: 06:13 01/26 05:10 Order name: BNP; Complete Time: 06:13 01/26 05:13 Order name: Lipase; Complete Time: 05:48 01/26 05:41 Order name: Troponin High Sensitivity: 630 AM PLEASE; Complete Time: 06:30 01/26 04:45 Order name: Chest Single View XRAY 01/26 04:45 Order name: EKG; Complete Time: 04:46 01/26 04:45 Order name: EKG - Nurse/Tech; Complete Time: 05:22 01/26 04:45 Order name: IV Saline Lock; Complete Time: 05:21 01/26 04:45 Order name: Labs collected and sent; Complete Time: 05:22 [facility] 01/26 04:45 Order name: Suicide Screening (Alexander) [facility] 01/26 04:45 Order name: Urine Dipstick-Ancillary (obtain specimen) [facility] 01/26 05:41 Order name: EKG - Nurse/Tech; Complete Time: 07:26 [facility] EC:17 Rate is 91 beats/min. Rhythm is regular. QRS [place] is Normal. ID interval is normal. QRS haydee interval is normal. QT interval is normal. No Q waves. T waves are Normal. No ST changes noted. Clinical impression: NSR w/ Non-specific ST/T Changes and No evidence of ischemia. Interpreted by me. Reviewed by me. 06:59 Rate is 87 beats/min. Rhythm is regular. QRS [place] is Normal. ID interval is normal. QRS haydee interval is normal. QT interval is normal. No Q waves. T waves are Normal. No ST changes noted. Clinical impression: Normal ECG and No evidence of ischemia. Interpreted by me. Reviewed by me. Administered Medications: 05:00 Drug: NS 0.9% IV 1000 ml Route: IV; Rate: 1 bolus; Site: right antecubital; ha1 05:00 Drug: Banana Bag - (NS 0.9% IV 1000 ml, foLIC Acid IVPB 1 mg, Thiamine IV 100 mg, ha1 Multivitamin IV 1 amp) Route: IV; Rate: 500 ml/hr; Site: right antecubital; 05:00 Drug: Ondansetron IVP 4 mg Route: IVP; Site: right antecubital; ha1 07:19 Follow up: Response: No adverse reaction ha1 05:55 Drug: Famotidine IVP 20 mg Route: IVP; Site: right antecubital; ha1 06:00 Follow up: Response: No adverse reaction ha1 06:00 Drug: Potassium Chloride IV 20 mEq Route: IV; Rate: per protocol; Site: right ha1 antecubital; 06:30 Follow up: Response: No adverse reaction ha1 06:00 Drug: Potassium PO Effervescent Tablet 50 mEq Route: PO; ha1 06:30 Follow up: Response: No adverse reaction ha1 Disposition Summary: 01/26/23 06:36 Discharge Ordered Location: Home haydee Problem: new haydee Symptoms: have improved haydee Condition: Stable haydee Diagnosis - Alcohol abuse with intoxication haydee - Acute gastritis haydee - Chest pain, unspecified haydee - Hypokalemia haydee Followup: haydee - With: Private Physician - When: 2 - 3 days - Reason: Recheck today's complaints, Continuance of care, Re-evaluation by your physician Followup: haydee - With: - When: 2 - 3 days - Reason: Recheck today's complaints, Re-evaluation by your physician Discharge Instructions: - Discharge Summary Sheet haydee - Alcohol Intoxication haydee - Nonspecific Chest Pain, Adult haydee - Potassium Content of Foods haydee - Alcohol Intoxication, [id number] haydee - Nonspecific Chest Pain, Adult, [id number] haydee - Aspirin and Your Heart haydee - Hypokalemia haydee Forms: - Medication Reconciliation Form haydee - Thank You Letter haydee - Antibiotic Education haydee - Prescription Opioid Use haydee Prescriptions: - Pepcid 20 mg Oral Tablet - take 1 tablet by ORAL route every 12 hours for 21 days; 42 tablet; Refills: 0, haydee Product Selection Permitted Signatures: Dispatcher [employer] Stephan Reece MD MD cha Ayala, Heidy RN RN ha1 Corrections: (The following items were deleted from the chart) 04:57 04:46 SARS-COV-2 Antigen Rapid+I.LAB.BRZ ordered. EDMI EDMS
== END 2023-01-26 07:45 | disposition home or self-care (01) ==
LOC: ER 04:39
DX: F10.129 Alcohol abuse with intoxication, unspecified (principal); K29.00 Acute gastritis without bleeding; R07.89 Other chest pain; E87.6 Hypokalemia; Z20.822 Contact with and (suspected) exposure to COVID-19
CPT/HCPCS: 36415; 71045; 80048; 80076; 83690; 83880; 84484; 85025; 85610; 85730; 93005; 96374; 96375; 99284; G0480; J2405; J3411; J3480; J7030; U0003

== ENCOUNTER 2023-04-25 12:25 | Emergency (ER) | payer SELFPAY ==
--- NOTE | 2023-04-25 13:44 | RAD REPORT ---
EXAM DESCRIPTION: RAD - Chest Single View - 04/25/2023 1:26 pm CLINICAL HISTORY: PRODUCTIVE COUGH Chest pain. COMPARISON: Chest Single View dated 01/26/2023; Chest Single View dated 04/09/2022; Chest Pa And Lat ( 2 Views) dated 02/08/2020; CHEST PA AND LAT 2 VIEW dated 01/14/2014 FINDINGS: Portable technique limits examination quality. The lungs are grossly clear. The heart is normal in size. No displaced fractures. IMPRESSION: No acute intrathoracic process suspected.
--- NOTE | 2023-04-25 15:08 | EDPHYS ---
Physician Documentation [facility] Name: Jonatan Longoria Age: 28 yrs Sex: Male : 1995 Arrival Date: 04/25/2023 Time: 12:25 Bed IW2 Private MD: ED Physician Kun Wang HPI: 04/25 12:53 This 28 yrs old Male presents to ER via Ambulatory with complaints of jmm Diarrhea, Body Aches, Congestion, Breathing Difficulty. 12:53 The patient presents to the emergency department with nausea, diarrhea. Onset: The jmm symptoms/episode began/occurred gradually. Possible causes: sick contacts, Boyfriend. The symptoms are aggravated by nothing. The symptoms are alleviated by nothing. Associated signs and symptoms: Pertinent negatives: fever. Patient complains of ongoing cough productive cough for the past 3 weeks.. Historical: - Allergies: 12:55 No Known Allergies; ll1 - PMHx: 12:55 chest palpitation; Hypercholesterolemia; Sleep Apnea; ll1 - PSHx: 12:55 None; ll1 - Immunization history:: Client reports receiving the 2nd dose of the Covid vaccine. - Social history:: Smoking status: Patient/guardian denies using tobacco, Stopped _ months ago 3. ROS: 12:53 Cardiovascular: Negative for chest pain, palpitations, and edema, Respiratory: Negative jmm for shortness of breath, cough, wheezing, and pleuritic chest pain. 12:53 Constitutional: Positive for body aches. 12:53 Abdomen/GI: Positive for diarrhea, Negative for abdominal pain. 12:53 All other systems are negative. Exam: 12:53 Constitutional: This is a well developed, well nourished patient who is awake, alert, jmm and in no acute distress. Head/Face: atraumatic. Eyes: EOMI, no conjunctival erythema appreciated ENT: Moist Mucus Membranes Neck: Trachea midline, Supple Chest/axilla: Normal chest wall appearance and motion. Cardiovascular: Regular rate and rhythm. No edema appreciated Respiratory: Normal respirations, no respiratory distress appreciated Abdomen/GI: Non distended Back: Normal ROM Skin: General appearance color normal MS/ Extremity: Moves all extremities, no obvious deformities appreciated, no edema noted to the lower extremities Neuro: Awake and alert Psych: Behavior is normal, Mood is normal, Patient is cooperative and pleasant Vital Signs: 12:52 BP 119 / 81; Pulse 71; Resp 18; Temp 98.3; Pulse Ox 99% ; Weight 140.61 kg; Height 6 ll1 ft. 0 in. ; Pain 6/10; 12:52 Body Mass Index 42.04 (140.61 kg, 182.88 cm) ll1 12:52 Pain Scale: Adult ll1 MDM: 12:53 Patient medically screened. [facility] 16:28 Differential diagnosis: Pneumonia, viral syndrome, bronchitis, gastroenteritis. Data [facility] reviewed: vital signs, nurses notes, lab test result(s). Counseling: I had a detailed discussion with the patient and/or guardian regarding: the historical points, exam findings, and any diagnostic results supporting the discharge/admit diagnosis, lab results, the need for outpatient follow up, to return to the emergency department if symptoms worsen or persist or if there are any questions or concerns that arise at home. 04/25 12:56 Order name: Influenza Screen (a \T\ B); Complete Time: 14:45 [facility] 04/25 12:56 Order name: SARS-COV-2 RT PCR; Complete Time: 14:45 [facility] 04/25 12:56 Order name: Chest Single View XRAY; Complete Time: 13:57 [facility] Administered Medications: No medications were administered Disposition: 16:43 Co-signature as Attending Physician, Kun Wang DO I was immediately available on-site ms3 in the Emergency Department for consultation in the care of the patient. Disposition Summary: 04/25/23 15:08 Discharge Ordered Location: Home [facility] Condition: Stable [facility] Diagnosis - Cough jmm - Diarrhea, unspecified m Followup: [facility] - With: Private Physician - When: 2 - 3 days - Reason: Recheck today's complaints, Continuance of care, Re-evaluation by your physician Discharge Instructions: - Food Choices to Help Relieve Diarrhea, Adult jmm - Cough, Adult jmm - Discharge Summary Sheet ll1 Forms: - Medication Reconciliation Form [facility] - Thank You Letter [facility] - Antibiotic Education [facility] - Prescription Opioid Use [facility] - Work release form ll1 Prescriptions: - Zithromax Z-Oli 250 mg Oral Tablet - take 1 tablet by ORAL route as directed for 5 days Day 1 - take two (2) tablets [facility] one time. Day 2, 3, 4 , 5 take one (1) tablet once daily.; 6 tablet; Refills: 0, Product Selection Permitted - dicyclomine 20 mg Oral Tablet - take 1 tablet by ORAL route 3 times per day As needed; 30 tablet; Refills: 0, froilan Product Selection Permitted Signatures: Dispatcher [employer] Theodore Medrano PA PA jmm Lewis, Lynsay, RN RN ll1 Kun Wang DO DO ms3
--- NOTE | 2023-04-25 15:08 | ER ---
Nurse's Notes [facility] Name: Jonatan Longoria Age: 28 yrs Sex: Male : 1995 Arrival Date: 04/25/2023 Time: 12:25 Bed IW2 Private MD: Diagnosis: Cough;Diarrhea, unspecified Presentation: 04/25 12:52 Chief complaint: Patient states: Cough for a few weeks. Diarrhea since Saturday with body ll1 aches. Coronavirus screen: Vaccine status: Patient reports receiving the 2nd dose of the covid vaccine. Client denies travel out of the [place] in the last 14 days. congestion, cough unrelated to allergies, diarrhea, fatigue, fever, muscle pain, shortness of breath, Client presents with at least one sign or symptom that may indicate coronavirus-19. Standard/surgical mask placed on the client. Ebola Screen: Patient denies travel to an Ebola-affected area in the 21 days before illness onset. Initial Sepsis Screen: Does the patient meet any 2 criteria? No. Patient's initial sepsis screen is negative. Does the patient have a suspected source of infection? Yes: Productive cough/pneumonia. Risk Assessment: Do you want to hurt yourself or someone else? Patient reports no desire to harm self or others. Onset of symptoms was April 01, 2023. 12:52 Method Of Arrival: Ambulatory ll1 12:52 Acuity: ALEKSANDRA 3 ll1 Triage Assessment: 12:55 General: Appears uncomfortable, Behavior is calm, cooperative, appropriate for age. ll1 Pain: Denies pain. EENT: Reports nasal congestion. Respiratory: Reports cough that is. GI: Reports cramping, diarrhea. Historical: - Allergies: 12:55 No Known Allergies; ll1 - PMHx: 12:55 chest palpitation; Hypercholesterolemia; Sleep Apnea; ll1 - PSHx: 12:55 None; ll1 - Immunization history:: Client reports receiving the 2nd dose of the Covid vaccine. - Social history:: Smoking status: Patient/guardian denies using tobacco, Stopped _ months ago 3. Screenin:[address] [facility] ED Fall Risk Assessment (Adult) Score/Fall Risk Level 0 - 2 = Low Risk ll1 Oriented to surroundings, Maintained a safe environment, Educated pt \T\ family on fall prevention, incl call for assistance when getting out of bed, Hourly rounding (assess needs \T\ fall precautionary measures) done. Abuse screen: Denies threats or abuse. Nutritional screening: No deficits noted. Tuberculosis screening: No symptoms or risk factors identified. Assessment: 13:55 Reassessment: No changes from previously documented assessment. Patient and/or family ll1 updated on plan of care and expected duration. Pain level reassessed. Patient is alert, oriented x 3, equal unlabored respirations, skin warm/dry/pink. 14:39 Reassessment: No changes from previously documented assessment. Patient and/or family ll1 updated on plan of care and expected duration. Pain level reassessed. Patient is alert, oriented x 3, equal unlabored respirations, skin warm/dry/pink. 14:51 Reassessment: No changes from previously documented assessment. Patient and/or family ll1 updated on plan of care and expected duration. Pain level reassessed. Vital Signs: 12:52 BP 119 / 81; Pulse 71; Resp 18; Temp 98.3; Pulse Ox 99% ; Weight 140.61 kg; Height 6 ll1 ft. 0 in. ; Pain 6/10; 12:52 Body Mass Index 42.04 (140.61 kg, 182.88 cm) ll1 12:52 Pain Scale: Adult ll1 ED Course: 12:26 Patient arrived in ED. rg4 12:37 Theodore Bird PA is PHCP. [facility] 12:37 Kun Wang DO is Attending Physician. [facility] 12:55 Triage completed. ll1 12:56 Arm band placed on. ll1 13:28 Chest Single View XRAY In Process Unspecified. EDMS 14:22 Influenza Screen (a \T\ B) Sent. ll1 14:22 SARS-COV-2 RT PCR Sent. ll1 14:40 Patient has correct armband on for positive identification. Bed in low position. Call ll1 light in reach. Cardiac monitoring not applicable on this patient. 14:40 No provider procedures requiring assistance completed. Patient did not have IV access ll1 during this emergency room visit. Administered Medications: No medications were administered Medication: 14:40 VIS not applicable for this client. ll1 Outcome: 15:08 Discharge ordered by . froilan 15:36 Discharged to home ambulatory. bp 15:36 Condition: stable 15:36 Discharge instructions given to patient, Instructed on discharge instructions, follow up and referral plans. medication usage, Demonstrated understanding of instructions, follow-up care, medications. 15:37 Patient left the ED. bp Signatures: Dispatcher [employer] EDMS Theodore Bird PA PA jmm Garcia, Rubi rg4 Norberto Rincon RN RN bp Fernando Nelson RN RN ll1 Corrections: (The following items were deleted from the chart) 12:56 12:52 Pulse 71bpm; Resp 18bpm; Pulse Ox 99%; Temp 98.3F; 140.61 kg; Height 6 ft. 0 in.; ll1 BMI: 42.0; Pain 6/10, Adult; ll1
[2023-04-25 16:16] VITALS: BP 119/81; TEMP 98.3; O2SAT 99
== END 2023-04-25 15:37 | disposition home or self-care (01) ==
LOC: ER 12:25
DX: R05.9 Cough, unspecified (principal); R19.7 Diarrhea, unspecified
CPT/HCPCS: 71045; 87635; 87804; 99283

== ENCOUNTER 2023-10-21 11:40 | Emergency (ER) | payer SELFPAY ==
--- OUTSIDE RECORDS SUMMARY | 2023-10-21 11:43 | XMS REPORT | Continuity of Care Document ---
:1995 Author Organization [facility] t Address [address] [place] [address] Care Team Providers Name Role Phone FILOMENA UNDERWOOD Attending Clinician Unavailable Problems This patient has no known problems. Allergies, Adverse Reactions, Alerts This patient has no known allergies or adverse reactions. Medications This patient has no known medications. Procedures This patient has no known procedures. Encounters Start End Encounter Admission Attending Care Care Encounter Source Date/Time Date/Time Type Type Clinicians Facility Department ID 2022-07-10 2022-07-10 Outpatient CAMPOS UNDERWOOD [id number] 00:00:00 00:00:00 FILOMENA berry 2022-07-06 2022-07-06 Outpatient CAMPOS UNDERWOOD [id number] 11:00:00 11:00:00 FILOMENA berry Results This patient has no known results.
[2023-10-21 13:15] LABS: SARS-CoV-2 Antigen Rapid Res Negative (Negative)
--- NOTE | 2023-10-21 13:24 | EDPHYS ---
Physician Documentation [facility] Name: Jonatan Longoria Age: 28 yrs Sex: Male : 1995 Arrival Date: 10/21/2023 Time: 11:40 Bed IW4 Private MD: ED Physician Haile Oro HPI: 10/21 12:57 This 28 yrs old Male presents to ER via Ambulatory with complaints of Flu snw Symptoms. 12:57 Onset: The symptoms/episode began/occurred suddenly, 2 day(s) ago, and became worse and snw became persistent. Associated signs and symptoms: Pertinent positives: congestion, cough, sore throat. The patient has not experienced similar symptoms in the past, but family has similar symptoms, son. The patient has not recently seen a physician. Historical: - Allergies: 12:33 No Known Allergies; iw - PMHx: 12:33 chest palpitation; Hypercholesterolemia; Sleep Apnea; iw - Immunization history:: Adult Immunizations unknown. - Social history:: Smoking status: Patient denies any tobacco usage or history of. ROS: 12:56 Eyes: Negative for injury, pain, redness, and discharge, snw 12:56 Neck: Negative for injury, pain, and swelling, Cardiovascular: Negative for chest pain, palpitations, and edema, 12:56 Abdomen/GI: Negative for abdominal pain, nausea, vomiting, diarrhea, and constipation, Back: Negative for injury and pain, : Negative for injury, bleeding, discharge, and swelling, MS/Extremity: Negative for injury and deformity, Skin: Negative for injury, rash, and discoloration, Neuro: Negative for headache, weakness, numbness, tingling, and seizure, Psych: Negative for depression, anxiety, suicide ideation, homicidal ideation, and hallucinations, 12:56 Constitutional: Positive for body aches, chills, fatigue, fever, malaise, poor PO intake, 12:56 ENT: Positive for sore throat, 12:56 Respiratory: Positive for cough, with no reported sputum, Exam: 12:55 Head/Face: Normocephalic, atraumatic. Eyes: Pupils equal round and reactive to light, snw extra-ocular motions intact. Lids and lashes normal. Conjunctiva and sclera are non-icteric and not injected. Cornea within normal limits. Periorbital areas with no swelling, redness, or edema. 12:55 Neck: Trachea midline, no thyromegaly or masses palpated, and no cervical lymphadenopathy. Supple, full range of motion without nuchal rigidity, or vertebral point tenderness. No Meningismus. Chest/axilla: Normal chest wall appearance and motion. Nontender with no deformity. No lesions are appreciated. Respiratory: Lungs have equal breath sounds bilaterally, clear to auscultation and percussion. No rales, rhonchi or wheezes noted. No increased work of breathing, no retractions or nasal flaring. Abdomen/GI: Soft, non-tender, with normal bowel sounds. No distension or tympany. No guarding or rebound. No evidence of tenderness throughout. Back: No spinal tenderness. No costovertebral tenderness. Full range of motion. 12:55 Skin: Warm, dry with normal turgor. Normal color with no rashes, no lesions, and no evidence of cellulitis. MS/ Extremity: Pulses equal, no cyanosis. Neurovascular intact. Full, normal range of motion. Neuro: Awake and alert, GCS 15, oriented to person, place, time, and situation. Cranial nerves II-XII grossly intact. Motor strength 5/5 in all extremities. Sensory grossly intact. Cerebellar exam normal. Normal gait. Psych: Awake, alert, with orientation to person, place and time. Behavior, mood, and affect are within normal limits. 12:55 Constitutional: The patient appears alert, awake, obese, uncomfortable, 12:55 ENT: TM's: are normal, Nose: is normal, Mouth: is normal, Posterior pharynx: erythema, that is moderate, Voice: is normal, 12:55 Cardiovascular: Rate: tachycardic, Rhythm: regular, Heart sounds: normal, Vital Signs: 12:32 BP 123 / 73; Pulse 96; Resp 18; Temp 98.3; Pulse Ox 98% on R/A; iw 13:51 BP 125 / 75; Pulse 88; Resp 18; Temp 98.5; Pulse Ox 99% ; kb3 MDM: 12:18 Patient medically screened. snw 13:24 Differential diagnosis: viral Infection, bacterial infection, URI, bronchitis, snw pneumonia. Data reviewed: vital signs, nurses notes, lab test result(s). I considered the following discharge prescriptions or medication management in the emergency department Medications were administered in the Emergency Department. See MAR. Counseling: I had a detailed discussion with the patient and/or guardian regarding the historical points, exam findings, and any diagnostic results supporting the discharge/admit diagnosis, lab results, the need for outpatient follow up, to return to the emergency department if symptoms worsen or persist or if there are any questions or concerns that arise at home. Special discussion: Based on the history and exam findings, there is no indication for further emergent testing or inpatient evaluation. I discussed with the patient/guardian the need to see the primary care provider for further evaluation of the symptoms. 10/21 12:11 Order name: Influenza Screen (a \T\ B); Complete Time: 13:21 bd 10/21 12:54 Order name: SARS RAPID; Complete Time: 13:21 iw Administered Medications: 13:50 Drug: Tussionex Pennkinetic ER PO Suspension 5 ml PO once Route: PO; kb3 Disposition: 16:56 Co-signature as Attending Physician, Haile Oro MD I reviewed the patient's care rn provided by the Advanced Practice Provider and agree with the diagnosis and treatment plan. Disposition Summary: 10/21/23 13:23 Discharge Ordered Notes: Location: Home snw Condition: Stable snw Diagnosis - Acute bronchitis, unspecified snw Followup: snw - With: Emergency Department - When: As needed - Reason: Worsening of condition Followup: snw - With: Private Physician - When: 5 - 6 days - Reason: Recheck today's complaints, Continuance of care, Re-evaluation by your physician Discharge Instructions: - Discharge Summary Sheet snw - Acute Bronchitis, Adult snw - Viral Respiratory Infection snw - Rehydration, Adult snw Forms: - Work release form snw - Medication Reconciliation Form snw - Thank You Letter snw - Antibiotic Education snw - Prescription Opioid Use snw - Patient Portal Instructions snw - Leadership Thank You Letter snw Prescriptions: - Zyrtec 10 mg Oral Tablet - take 1 tablet ORAL route once daily As needed; 20 tablet; Refills: 0, Product snw Selection Permitted - Prednisone 20 mg Oral Tablet - take 2 tablets ORAL route once daily for 5 days; 10 tablet; Refills: 0, Product snw Selection Permitted - Pepcid 20 mg Oral Tablet - take 1 tablet ORAL route once daily; 20 tablet; Refills: 0, Product Selection snw Permitted Signatures: Dispatcher [employer] EDMS Winter Montilla, COMMODITIES TRADER-C COMMODITIES TRADER-Csnw Cinthia Lin, RN Haile Browne MD MD rn Bradberry, Kelly, WILLA CROUCH kb3
--- NOTE | 2023-10-21 13:24 | ER ---
Nurse's Notes [facility] Name: Jonatan Longoria Age: 28 yrs Sex: Male : 1995 Arrival Date: 10/21/2023 Time: 11:40 Bed IW4 Private MD: Diagnosis: Acute bronchitis, unspecified Presentation: 10/21 12:32 Chief complaint: Patient states: flu symptoms, was exposed to flu. Coronavirus screen: iw Client presents with at least one sign or symptom that may indicate coronavirus-19. Ebola Screen: Patient negative for fever greater than or equal to 101.5 degrees Fahrenheit, and additional compatible Ebola Virus Disease symptoms Patient denies exposure to infectious person. Patient denies travel to an Ebola-affected area in the 21 days before illness onset. No symptoms or risks identified at this time. Initial Sepsis Screen: Does the patient meet any 2 criteria? No. Patient's initial sepsis screen is negative. Does the patient have a suspected source of infection? No. Patient's initial sepsis screen is negative. Risk Assessment: Do you want to hurt yourself or someone else? Patient reports no desire to harm self or others. 12:32 Method Of Arrival: Ambulatory 12:32 Acuity: ALEKSANDRA 4 iw Historical: - Allergies: 12:33 No Known Allergies; iw - PMHx: 12:33 chest palpitation; Hypercholesterolemia; Sleep Apnea; iw - Immunization history:: Adult Immunizations unknown. - Social history:: Smoking status: Patient denies any tobacco usage or history of. Screenin:51 [facility] ED Fall Risk Assessment (Adult) History of falling in the last 3 months, kb3 including since admission No falls in past 3 months (0 pts). Abuse screen: Denies threats or abuse. Denies injuries from another. Nutritional screening: No deficits noted. Tuberculosis screening: No symptoms or risk factors identified. Assessment: 13:51 General: Appears ill, Behavior is calm, cooperative. Pain: Complains of pain in head, kb3 chest, right arm, left arm, right leg and left leg. Respiratory: Reports shortness of breath cough that is. EENT: Reports nasal congestion nasal discharge that is watery. Vital Signs: 12:32 BP 123 / 73; Pulse 96; Resp 18; Temp 98.3; Pulse Ox 98% on R/A; iw 13:51 BP 125 / 75; Pulse 88; Resp 18; Temp 98.5; Pulse Ox 99% ; kb3 ED Course: 11:44 Patient arrived in ED. im 11:44 Winter Montilla FNP-C [facility]. snw 11:44 Haile Oro MD is Attending Physician. snw 12:33 Triage completed. iw 13:51 Patient has correct armband on for positive identification. Provided Education on: plan kb3 of care, medications, discharge. 13:51 No provider procedures requiring assistance completed. Patient did not have IV access kb3 during this emergency room visit. Administered Medications: 13:50 Drug: Tussionex Pennkinetic ER PO Suspension 5 ml PO once Route: PO; kb3 Medication: 13:51 VIS not applicable for this client. kb3 Outcome: 13:23 Discharge ordered by . snw 13:51 Discharged to home ambulatory, with family, kb3 13:51 Condition: stable 13:51 Discharge instructions given to patient, Instructed on discharge instructions, the need for admit, medication usage, Demonstrated understanding of instructions, follow-up care, medications, Prescriptions given X 3, 13:53 Patient left the ED. kb3 Signatures: Winter Montilla FNP-C DIDACTIC PROGRAM IN DIETETICS DIRECTOR-Csnw Cinthia Lin, RN RN iw Melissa Good, RN RN kb3 Yolande Moreno im
[2023-10-21 13:59] VITALS: BP 125/75; TEMP 98.5; O2SAT 99
[2023-10-21] MEDS ORDERED: HYDROCODONE/CHLORPHEN 5 ML/OSYR ONE (13:59)
== END 2023-10-21 13:53 | disposition home or self-care (01) ==
LOC: ER 11:40
DX: J20.9 Acute bronchitis, unspecified (principal); Z11.52 Encounter for screening for COVID-19
CPT/HCPCS: 36415; 87804; 87811; 99283